=== PATIENT | male | born 1970 | race Caucasian/White ===

== ENCOUNTER 2022-12-20 08:44 | Outpatient (OUT) | payer OTHER, SELFPAY ==
[2022-12-20 09:31] LABS: Basophils Absolute Auto 0.1 10^3/uL (0.0-0.1); Eosinophils Absolute Auto 0.1 10^3/uL (0.0-0.7); Eosinophils Percent Auto 1.3 % (0.9-7.0); Hematocrit 44.7 % (42.0-54.0); Hemoglobin 15.7 g/dL (14.0-18.0); Immature Granulocytes Abs Auto 0.02 10^3/uL (0.00-0.03); Immature Granulocytes Pct Auto 0.3 % (0.0-0.5); Lymphocytes Absolute Auto 1.8 10^3/uL (1.2-3.8); Lymphocytes Percent Auto 28.8 % (20.5-60.0); Mean Corpuscular HGB Conc 35.1 g/dL (29.9-35.2); Mean Corpuscular Hemoglobin 31.7 pg (25.9-34.0); Mean Corpuscular Volume 90.1 fL (80.0-94.0); Monocytes Absolute Auto 0.6 10^3/uL (0.3-0.8); Monocytes Percent Auto 9.9 % (1.7-12.0); Neutrophils Absolute Auto 3.7 10^3/uL (1.4-6.5); Neutrophils Percent Auto 58.7 % (43.0-75.0); Platelet Count 278 10^3/uL (150-450); Red Blood Count 4.96 10^6/uL (4.70-6.10); Red Cell Distribution Width 11.9 % (11.0-15.0); White Blood Count 6.3 10^3/uL (4.0-11.0)
[2022-12-20 10:13] LABS: Alanine Aminotransferase 78 U/L (16-63); Albumin Globulin Ratio 1.2; Alkaline Phosphatase 92 U/L (46-116); Anion Gap 11.6; Aspartate Amino Transferase 34 U/L (15-37); BUN Creatinine Ratio 18.2; Bilirubin Total 0.9 mg/dL (0.2-1.0); Calcium 8.8 mg/dL (8.5-10.1); Carbon Dioxide 27.8 mmol/L (21.0-32.0); Chloride 103 mmol/L (98-107); Chol HDL Ratio 5.6; Cholesterol 206 mg/dL (<=200); Estimated GFR (African America >60 (>=60); Estimated GFR (Non-African Ame >60 (>=60); Globulin 3.4 g/dL; Glucose 109 mg/dL (74-106); HDL Cholesterol 37 mg/dL (40-60); Potassium 4.4 mmol/L (3.5-5.1); Sodium 138 mmol/L (136-145); Total Protein 7.4 g/dL (6.4-8.2); Triglycerides 129 mg/dL (<=150); VLDL CHOLESTEROL 25.8 mg/dL
[2022-12-20 10:26] LABS: Prostate Specific Antigen Scrn 1.01 ng/mL (<=4.00)
== END 2022-12-20 08:45 | disposition home or self-care (01) ==
LOC: LAB 08:50
PROVIDERS: PCP Internal Medicine; Visit Provider Internal Medicine
DX: Z00.00 Encounter for general adult medical examination without abnormal findings (principal); Z12.5 Encounter for screening for malignant neoplasm of prostate
CPT/HCPCS: 36415; 80053; 80061; 85025; G0103

== ENCOUNTER 2024-01-29 07:45 | Outpatient (OUT) | payer OTHER, SELFPAY ==
[2024-01-29 07:59] LABS: Basophils Absolute Auto 0.1 10^3/uL (0.0-0.1); Basophils Percent Auto 0.9 % (0.2-2.0); Eosinophils Absolute Auto 0.1 10^3/uL (0.0-0.7); Eosinophils Percent Auto 1.3 % (0.9-7.0); Hemoglobin 16.2 g/dL (14.0-18.0); Immature Granulocytes Abs Auto 0.02 10^3/uL (0.00-0.03); Immature Granulocytes Pct Auto 0.3 % (0.0-0.5); Lymphocytes Absolute Auto 1.8 10^3/uL (1.2-3.8); Lymphocytes Percent Auto 26.1 % (20.5-60.0); Mean Corpuscular Hemoglobin 32.7 pg (25.9-34.0); Mean Corpuscular Volume 90.7 fL (80.0-94.0); Monocytes Absolute Auto 0.7 10^3/uL (0.3-0.8); Monocytes Percent Auto 9.9 % (1.7-12.0); Neutrophils Absolute Auto 4.2 10^3/uL (1.4-6.5); Neutrophils Percent Auto 61.5 % (43.0-75.0); Platelet Count 282 10^3/uL (150-450); Red Blood Count 4.96 10^6/uL (4.70-6.10); Red Cell Distribution Width 11.6 % (11.0-15.0); White Blood Count 6.9 10^3/uL (4.0-11.0)
[2024-01-29 08:57] LABS: Alanine Aminotransferase 71 U/L (16-63); Albumin Globulin Ratio 1.3; Alkaline Phosphatase 94 U/L (46-116); Anion Gap 14.1; Aspartate Amino Transferase 31 U/L (15-37); Bilirubin Total 1.4 mg/dL (0.2-1.0); Calcium 8.9 mg/dL (8.5-10.1); Carbon Dioxide 25.1 mmol/L (21.0-32.0); Chloride 103 mmol/L (98-107); Chol HDL Ratio 5.6; Cholesterol 207 mg/dL (<=200); Estimated GFR (African America >60 (>=60); Estimated GFR (Non-African Ame >60 (>=60); Globulin 3.2 g/dL; Glucose 108 mg/dL (74-106); HDL Cholesterol 37 mg/dL (40-60); Potassium 4.2 mmol/L (3.5-5.1); Sodium 138 mmol/L (136-145); Total Protein 7.2 g/dL (6.4-8.2); Triglycerides 123 mg/dL (<=150); VLDL CHOLESTEROL 24.6 mg/dL
[2024-01-29 09:15] LABS: Prostate Specific Antigen Scrn 1.54 ng/mL (<=4.00)
== END 2024-01-29 07:46 | disposition home or self-care (01) ==
LOC: LAB 07:45
PROVIDERS: PCP Internal Medicine; Visit Provider Internal Medicine
DX: Z00.00 Encounter for general adult medical examination without abnormal findings (principal)
CPT/HCPCS: 36415; 80053; 80061; 85025; G0103

== ENCOUNTER 2025-01-27 08:31 | Outpatient (OUT) | payer BC, SELFPAY ==
--- OUTSIDE RECORDS SUMMARY | 2025-01-27 08:34 | XMS_ITS | Clinical Summary ---
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 Primary Care Provider Unavailabl e Allergies No known active allergies Medications moexipril hcl(UNIVASC 15 MG TAB) 0 01/14/2008 Active esomeprazole mag trihydrate(NEXI UM 40 MG CAP) 0 01/14/2008 Activ e methylprednisol one(MEDROL (NICHOLAS) 4 MG TABS IN A DOSE PACK)Indication s:Other wrist sprain and strain As directed on package insert one 0 03/14/2008 Active Social History Tobacco Use Types Packs/Day Years Used Date Smoking Tobacco: Never Alcohol Use Standard Drinks/Week Comments No 0 (1 standard drink = 0.6 oz pur e alcohol) Sex and Gender Information Value Date Recorded Sex Assigned at Not on file Legal Sex Male 9:31 AM EST Gender Identity Not on file Sexual Orientation Not on file Last Filed Vital Signs Vital Sign Reading Time Taken Comments Blood Pressure 127/84 01/14/2008 4:41 PM EDT Pulse 81 01/14/2008 4:41 PM EDT Temperature - - Respiratory Rate - - Oxygen Saturation 100% 01/14/2008 4:41 PM EDT Inhaled Oxygen Concentration - - Weight 90.7 kg (200 lb) 01/14/2008 4:41 PM EDT Height 177.8 cm (5' 10 ) 01/14/2008 4:41 PM EDT Body Mass Index 28.7 01/14/2008 4:41 PM EDT Plan of Treatment Health Maintenance Due Date Last Done Comments Anxiety Screening 1988 Depression Screening 1988 HIV Screening 1988 Hepatitis C Screening 1988 DTaP,Tdap,Td Vaccine (1 - Tdap) 1989 Hepatitis B Vaccine (1 of 3 - 19+ 3-dose series) 07/[address] Colonography 2015 Cologuard (FIT-DNA) 2015 Colonoscopy 2015 Colorectal Cancer Screening 2015 Diabetes Screening 2015 01/18/2008 Fecal Occult Blood 2015 Sigmoidoscopy 2015 Pneumococcal Vaccine: 50+ (1 of 1 - PCV) 2020 Shingrix Vaccine (1 of 2) 2020 Influenza Vaccine (#1) 2025 Procedures Procedure Name Priority Date/Time Associated Diagnosis Comments BASIC METABOLIC PANEL Routine 01/18/2008 9:36 AM EDT Sprain Of Wrist Nec from Last 3 Months or Most Recently Relevant to Health Maintenance Results * BASIC METABOLIC PNL (01/18/2008 9:36 AM EDT) Glucose 94 65 - 100 mg/dL [facility] BUN 20 10 - 25 mg/dL [facility] Creatinine 1.21 0.70 - 1.40 mg/dL [facility] Sodium 138 135 - 146 mmol/L [facility] Potassium 4.8 3.5 - 5.0 mmol/L [facility] Chloride 102 98 - 110 mmol/L [facility] CO2 24 23 - 32 mmol/L [facility] Anion Gap 12 0 - 15 mmol/L [facility] Calcium 9.1 8.5 - 10.5 mg/dL [facility] eGFR- >60 [facility] eGFR-All Other Races >60 [facility] Comment: eGFR (Estimated GFR) Units of measure: mL/min/1.73 meters squared eGFR is derived from the reexpressed MDRD Study equation using the following parameters: serum creatinine, age, gender and race. The creatinine assay has been calibrated to be traceable to IDMS. An eGFR <60 mL/min/1.73m2 for >3 months is consistent with chronic kidney disease. Refer to KDOQI guidelines for clinical interpretation. Blood specimen (specimen) BLOOD SPECIMEN / Unknown 01/18/2008 9:36 AM EDT us Alissa Beury PA-C LABORATORY Final Result [facility] [id number] [place] [address] from Last 3 Months or Most Recently Relevant to Health Maintenance Insurance [facility] Advance Directives Documents on File Type Date Recorded Patient [employer] Expl anation Advance Directive(s) 02/04/2008
--- OUTSIDE RECORDS SUMMARY | 2025-01-27 08:34 | XMS_ITS | Clinical Summary ---
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 Phone Unavailable Primary Care Provider Unavailabl e Allergies No known active allergies Medications omeprazole (PriLOSEC) [address] capsule TAKE 1 CAPSULE DAILY ON EMPTY STOMACH FOLLOWED IN 30 MINUTES BY BREAKFAST 5 Active benazepril (Lotensin) 40 MG tablet Take 40 mg by mouth Daily 5 Active Active Problems No known active problems Social History Tobacco Use Types Packs/Day Years Used Date Smoking Tobacco: Never Smokeless Tobacco: Never Tobacco Cessation:Counseling Given: Not Answered Sex and Gender Information Value Date Recorded Sex Assigned at Not on file Legal Sex Male 6:42 PM EDT Gender Identity Not on file Sexual Orientation Not on file Plan of Treatment Upcoming Encounters Date Type Department Care Team (Late st Contact Info) Description 09/08/2025 3:35 PM EDT [facility] [address] [facility] [address] [place] [id number] Isabel Parker MD [address] [facility] [address] [place], [place] [id number] Insurance [facility]
--- OUTSIDE RECORDS SUMMARY | 2025-01-27 08:38 | XMS_ITS | CCD ---
Author Organization [facility] Care Team Providers Care Nurseryperson Name Role Phone Demetria Nur Unavailable LUÍS, DR BURGOS Admitting Unavailable BALL, DR BURGOS Attending Unavailable BALL, DR BURGOS Primary Care Unavailable BALL, DR BURGOS Consulting Unavailable WEST, DR FLAVIO Klein Consulting Unavailable LUÍS, DR BURGOS Admitting Unavailable BALL, DR BURGOS Attending Unavailable BALL, DR BURGOS Primary Care Unavailable BALL, DR BURGOS Consulting Unavailable BALL, DR BURGOS Admitting Unavailable BALL, DR BURGOS Attending Unavailable BALL, DR BURGOS Referring Unavailable BALL, DR BURGOS Primary Care Unavailable BALL, DR BURGOS Consulting Unavailable CORNELIUS, DR FLAVIO Klein Consulting Unavailable Yaya Staley Unavailable YAYA STALEY Primary Care Physician Unavailable Primary Care Provider UnavailISABEL Farrar Attending Unavailable SHOOK, Eren Chin Attending Unavailable SHOOK, Eren Chin Attending Unavailable SHOOK, Eren Chin Attending Unavailable SHOOK, Eren Chin Admitting Unavailable GEN, Eren Chin Attending Unavailable Yaya Staley DO Primary Care Provider [phone] Yaya Staley DO Attending Provider [phone] Allergies Allergy Classification Reported Allergen(s) Allergy Type Date of Onset Reaction(s) Facility (1 source) patient allergy list reviewed by nurse or physicia Propensity to adverse reactions 4 Comment:Done [employer] Other Medications Current Medications Medication Drug Class(es) Dates Sig (Normalized) Sig (Original) 24 hr alfuzosin hydrochloride 10 mg extended release oral tablet (4 sources) alpha-Adrenergic Hitesh Start: 01-26-2025 take 1 tablet by mouth once daily at mealtime Alfuzosin 10 mg tablet extended release 24 hr Active 10 MG PO Daily January 26, 2025 12:00am administer after the same meal each day Complies with drug therapy Start: 11-05-20[address] once daily alfuzosin 10 mg ER Tab 10 mg = 1 tab(s), Oral, Daily, # 90 tab(s), Refills(s) 3, [id number], cm, 11/05/24 10:11:00 EDT, Height/Length Dosing, 101.7, kg, 11/05/24 10:11:00 EDT, Weight Dosing Start Date: 11/05/24 Status: Ordered Quantity: 90.0 Unit: tab(s) Repeat number: 4 Indications: Benign prostatic hyperplasia with lower urinary tract symptoms; Start: 08-02-2024 take [address] once daily alfuzosin 10 mg ER Tab 10 mg = 1 tab(s), Oral, Daily, # 30 tab(s), Refills(s) 11, [id number] 180, cm, 08/02/24 10:11:00 EST, Height/Length Dosing, 106, kg, 08/02/24 10:11:00 EST, Weight Dosing Start Date: 08/02/24 Status: Ordered Quantity: 30.0 Unit: tab(s) Repeat number: 12 Indication: Benign prostatic hyperplasia with lower urinary tract symptoms benazepril hydrochloride 40 mg oral tablet (15 sources) Angiotensin Converting Enzyme Inhibitor Start: 06-28-2024 End: 12-28-2024 take 1 tablet by mouth once daily Benazepril 40 mg tablet Active 0 .ROUTE .COMPLEX 90 December 28, 2024 7:41am TAKE 1 TABLET BY MOUTH EVERY DAY Complies with drug therapy Start: 03-31-2019 End: 06-28-2024 take 1 tablet by mouth once daily benazepril (Lotensin) 40 MG tablet Take 40 mg by mouth Daily 06/28/2024 Active Start: 04-01-[address] once daily benazepril 20 mg Tab 20 mg = 1 tab(s), Oral, Daily, Refills(s) 0, High blood pressure Start Date: 04/01/14 Status: Ordered Repeat number: 1 doxycycline hyclate 100 mg oral capsule (1 source) Tetracycline-class Drug Start: 08-02-2024 End: 08-30-2024 take 1 capsule by mouth twice daily doxycycline hyclate 100 mg Cap 100 mg = 1 cap(s), Oral, BID, X 4 week(s), # 56 cap(s), Refills(s) 0, Pharmacy: [facility]/pharmacy #[id number], 180, cm, 08/02/24 10:11:00 EST, Height/Length Dosing, 106, kg, 08/02/24 10:11:00 EST, Weight Dosing Start Date: 08/02/24 Stop Date: 08/30/24 Status: Ordered omeprazole 20 mg delayed release oral capsule (16 sources) Proton Pump Inhibitor Start: 06-13-2024 omeprazole (PriLOSEC) [address] capsule TAKE 1 CAPSULE DAILY ON EMPTY STOMACH FOLLOWED IN 30 MINUTES BY BREAKFAST 06/13/2024 Active Start: 04-12-2024 End: 12-10-2024 Omeprazole 20 mg capsule,del ayed release(DR/EC) Active 0 .ROUTE .COMPLEX December 10, 2024 8:24am TAKE 1 CAPSULE DAILY ON EMPTY STOMACH FOLLOWED IN 30 MINUTES BY BREAKFAST Complies with drug therapy Start: 01-19-2024 End: 04-12-2024 take 1 capsule by mouth once daily at breakfast Omeprazole 20 mg capsule,delayed release(DR/EC) Discontinued 20 MG PO Daily January 19, 2024 12:00am April 12, 2024 1:59pm DAILY ON EMPTY STOMACH FOLLOWED IN 30 MINUTES BY BREAKFAST Start: 04-01-2014 take 1 capsule by [facility] once daily Omeprazole 20 mg Cap - DR 20 mg, Oral, Daily, Refills(s) 0, Control of stomach acid Start Date: 04/01/14 Status: Ordered Repeat number: 1 Omeprazole 20 MG TAKE 1 CAPSULE BY MOUTH DAILY ON EMPTY STOMACH FOLLOWED IN 30 MINUTES BY BREAKFAST Orally Once a day for 90 days Active Omeprazole Not-T aking/PRN Omeprazole Not-T aking Omeprazole Activ e selenium sulfide 25 mg/ml medicated shampoo (2 sources) Start: 12-16-2022 Selenium Sulfi de 2.5 % 1 application Externally daily x 1 week for 7 days Nov, Active Start: 12-16-2022 Selenium Sulfi de 2.5 % 1 application Externally daily x 1 week for 7 days Nov, Active sulfamethoxazole 400 mg / trimethoprim 80 mg oral tablet (2 sources) Dihydrofolate Reductase Inhibitor Antibacterial, Sulfonamide Antimicrobial Start: 01-26-2025 take 1 tablet by mouth once daily Sulfamethoxazole-Trimethoprim 400-80 mg tablet Active 1 TAB PO Daily January 26, 2025 12:00am Complies with drug therapy Start: 11-05-2024 End: 01-04-2025 Bactrim D.S. 800 mg-160 mg T ab 1 tab(s), Oral, q12hr for 30 day(s), 60 tab(s), Refill(s) 1, Take with food, [facility]/pharmacy #[id number], 180, cm, 11/05/24 10:11:00 EDT, Height/Length Dosing, 101.7, kg, 11/05/24 10:11:00 EDT, Weight Dosing Start Date: 11/05/24 Stop Date: 01/04/25 Status: Ordered Quantity: 60.0 Unit: tab(s) Repeat number: 2 Completed/Discontinued Medications Medication Drug Class(es) Dates Sig (Normalized) Sig (Original) acetaminophen 325 mg / oxyCODONE hydrochloride 5 mg oral tablet (2 sources) Opioid Agonist Start: 03-31-2019 End: 01-19-2024 take 1 tablet by mouth every six hours as needed for pain Oxycodone-Acetamin ophen 5-325 mg tablet Discontinued 1 TAB PO Q6H as needed for pain 19 10March 31, 2019 January 19, 2024 2:01pm cefTRIAXone (3 sources) Cephalosporin Antibacterial Start: 11-11-2016 Rocephin 500 mg Oct, 250 mg cephalexin 500 mg oral tablet (6 sources) Cephalosporin Antibacterial Start: 06-25-2021 take 1 tablet by mouth every twelve hours Cephalexin 500 MG 1 tablet Orally every 12 hrs for 10 day(s) Jun, Not-Taking/PRN Start: 03-31-2019 End: 01-19-2024 take 1 capsule by mouth every twelve hours Cephalexin 500 mg capsule Discontinued 500 MG PO Q12H March 31, 2019 12:00am January 19, 2024 2:00pm fluconazole 150 mg oral tablet (4 sources) Azole Antifungal Start: 01-19-2024 End: 01-19-2024 take 2 tablets by mouth every week Fluconazole 150 mg tablet Discontinued 300 MG PO every week January 19, 2024 12:00am January 19, 2024 2:11pm Start: 01-19-2024 End: 01-19-2024 take 300 mg by mouth every week Fluconazole Discontinu ed 300 MG PO every week January 19, 2024 12:00am January 19, 2024 2:11pm Start: 12-16-2022 take 2 tablets by mo [facility] every week Fluconazole 150 MG 2 tablets Orally weekly for 14 days Nov, Active tadalafil 20 mg oral tablet (4 sources) Phosphodiesterase 5 Inhibitor Start: 01-19-2024 End: 01-19-2024 take 1 tablet by mouth once daily as needed Tadalafil (Pulm. Hypertension) 20 mg tablet Discontinued 20 MG PO Daily as needed January 19, 2024 12:00am January 19, 2024 2:11pm Start: 12-16-[address] every twenty-four hours Tadalafil 20 MG 1 tablet as needed Orally Once a day for 30 days Nov, Active Problems Active Problems Problem Classification Problem Date Documented Date Episodic/Chronic Abdominal pain (13 sources) Right lower quadrant pain; Translations: [Right upper quadrant pain] Onset: 05-11-2018 Episodic Acute bronchitis (1 source) Acute bronchitis due to other specified organisms; Translations: [Acute bronchitis due to other specified organisms] Episodic Conditions associated with dizziness or vertigo (3 sources) Dizziness and giddiness; Translations: [Benign paroxysmal positional vertigo] Onset: 04-18-2017 01-26-2025 Episodic Disorders of lipid metabolism (13 sources) Hypercholesterolemia; Translations: [Pure hypercholesterolemia, unspecified] Onset: 08-17-2013 Chronic Esophageal disorders (10 sources) Gastro-esophageal reflux disease with esophagitis; Translations: [Gastroesophageal reflux disease with esophagitis without hemorrhage] Onset: 08-17-2013 01-17-2024 Chronic Esophageal disorders (3 sources) Esophageal disorders; Translations: [Gastro-esophageal reflux disease with esophagitis, without bleeding] Essential hypertension (11 sources) Essential hypertension; Translations: [Essential (primary) hypertension] Chronic Essential hypertension (1 source) Essential hypertension; Translations: [Essential hypertension, benign] Onset: 08-17-2013 Hemorrhoids (3 sources) Prolapsed hemorrhoids 07-16-2019 Episodic Hyperplasia of prostate (5 sources) Benign prostatic hypertrophy with outflow obstruction; Translations: [Benign prostatic hyperplasia with lower urinary tract symptoms] Onset: 08-02-2024 Chronic Inflammatory conditions of male genital organs (5 sources) Chronic prostatitis; Translations: [Chronic prostatitis] Onset: 08-02-2024 Chronic Inflammatory conditions of male genital organs (2 sources) Epididymitis; Translations: [Epididymo-orchitis] Onset: 08-27-2018 Episodic Mycoses (1 source) Pityriasis versicolor Episodic Other and unspecified benign neoplasm (1 source) Benign lipomatous neoplasm of skin and subcutaneous tissue of trunk; Translations: [Benign lipomatous neoplasm of skin and subcutaneous tissue of trunk] Episodic Other and unspecified benign neoplasm (3 sources) Lipoma of skin and subcutaneous tissue (excluding face) 07-16-2019 Episodic Other and unspecified benign neoplasm (3 sources) Lipoma of trunk 06-21-2019 Episodic Other diseases of kidney and ureters (3 sources) Hydronephrosis 01-19-2019 Episodic Other diseases of veins and lymphatics (1 source) Scrotal varices; Translations: [Scrotal varices] Episodic Other diseases of veins and lymphatics (3 sources) Varicocele 10-19-2019 Episodic Other inflammatory condition of skin (2 sources) Seborrheic dermatitis; Translations: [Other seborrheic dermatitis] 09-07-2024 Episodic Other lower respiratory disease (4 sources) Cough; Translations: [Cough] Episodic Other male genital disorders (2 sources) Erectile dysfunction co-occurrent and due to arterial insufficiency; Translations: [Erectile dysfunction due to arterial insufficiency] Chronic Other male genital disorders (1 source) Erectile dysfunction due to arterial insufficiency Chronic Other male genital disorders (3 sources) Cyst of epididymis 01-19-2019 Episodic Other male genital disorders (1 source) Disorder of male genital organ; Translations: [Other specified disorders of the male genital organs] Onset: 11-05-2024 Episodic Other male genital disorders (1 source) Disorder of spermatic cord 11-05-2024 Episodic Other male genital disorders (1 source) Pain in testicle 11-05-2024 Episodic Other non-traumatic joint disorders (5 sources) Pain in right hip; Translations: [Pain in joint, pelvic region and thigh] Onset: 01-10-2022 Episodic Other non-traumatic joint disorders (1 source) Pain in left hip; Translations: [PAIN IN LEFT HIP] Onset: 01-11-2022 Episodic Other non-traumatic joint disorders (3 sources) Hip pain; Translations: [Pain in right hip] 01-19-2024 Episodic Other nutritional; endocrine; and metabolic disorders (5 sources) Body mass index 30+ - obesity; Translations: [Body mass index (BMI) 34.0-34.9, adult] 06-22-2019 Chronic Other nutritional; endocrine; and metabolic disorders (2 sources) Obesity caused by energy imbalance; Translations: [Other obesity due to excess calories] Chronic Other nutritional; endocrine; and metabolic disorders (2 sources) Other obesity due to excess calories; Translations: [Other obesity due to excess calories] Onset: 08-17-2013 Chronic Other nutritional; endocrine; and metabolic disorders (1 source) Body mass index (BMI) 34.0-34.9, adult Chronic Other nutritional; endocrine; and metabolic disorders (1 source) Other disorders of bilirubin metabolism; Translations: [Other disorders of bilirubin metabolism] Onset: 05-16-2018 Chronic Other nutritional; endocrine; and metabolic disorders (2 sources) Obesity, unspecified; Translations: [Obesity, unspecified] 01-19-2024 Chronic Other nutritional; endocrine; and metabolic disorders (6 sources) Obesity; Translations: [Obesity, unspecified] 01-19-2024 Chronic Other screening for suspected conditions (not mental disorders or infectious disease) (6 sources) Encounter for screening for malignant neoplasm of prostate; Translations: [Screening for malignant neoplasm done] Onset: 08-09-2021 Episodic Other skin disorders (3 sources) Nodule of subcutaneous tissue of abdominal wall 06-24-2019 Episodic Other skin disorders (2 sources) Lentiginosis; Translations: [Other melanin hyperpigmentation] 09-07-2024 Episodic Other skin disorders (2 sources) Seborrheic keratosis; Translations: [Other seborrheic keratosis] 09-07-2024 Episodic Screening and history of mental health and substance abuse codes (1 source) Encounter for screening for depression; Translations: [Encounter for screening for depression] Episodic Spondylosis; intervertebral disc disorders; other back problems (9 sources) Spondylosis without myelopathy or radiculopathy, lumbar region; Translations: [Lumbar spondylosis] Onset: 07-28-2017 Chronic Spondylosis; intervertebral disc disorders; other back problems (2 sources) Sacrococcygeal disorders, not elsewhere classified; Translations: [SACROCOCCYGEAL DISORDERS NEC] Onset: 08-12-2022 Episodic Sprains and strains (4 sources) Strain of muscle(s) and tendon(s) of the rotator cuff of right shoulder, initial encounter; Translations: [Rupture of anterior cruciate ligament] Onset: 04-18-2017 04-01-2014 Episodic Comment on above: RIGHT Unclassified (1 source) Low back pain, unspecified; Translations: [Low back pain, unspecified] Unclassified (1 source) Unspecified viral infection, in conditions classified elsewhere and of unspecified site; Translations: [Unspecified viral infection, in conditions classified elsewhere and of unspecified site] Onset: 08-29-2015 Unclassified (1 source) Chest pain, Other; Translations: [Chest pain, Other] Onset: 06-11-2017 Unclassified (1 source) Routine general medical examination at health care facility; Translations: [Routine general medical examination at health care facility] Onset: 11-27-2015 Unclassified (1 source) Body mass index 31.0-31.9, adult; Translations: [Body mass index 31.0-31.9, adult] Onset: 08-17-2013 Unclassified (1 source) Body mass index 30.0-30.9, adult; Translations: [Body mass index 30.0-30.9, adult] Onset: 08-17-2013 Unclassified (1 source) Body mass index 32.0-32.9, adult; Translations: [Body mass index 32.0-32.9, adult] Onset: 08-17-2013 Unclassified (1 source) Bacterial infection, unspecified, in conditions classified elsewhere and of unspecified site; Translations: [Bacterial infection, unspecified, in conditions classified elsewhere and of unspecified site] Onset: 08-27-2018 Unclassified (1 source) Abdominal pain, other specified site; Translations: [Abdominal pain, other specified site] Onset: 05-11-2018 Unclassified (6 sources) Patient encounter status 07-16-2019 Past or Other Problems Problem Classification Problem Date Documented Da te Episodic/Chronic Nonspecific chest pain (1 source) Other chest pain; Translations: [Other chest pain] Onset: 08-08-2017 Episodic Other diseases of veins and lymphatics (1 source) Scrotal varices; Translations: [Scrotal varices] Onset: 09-08-2018 Episodic Other gastrointestinal disorders (1 source) Other specified symptoms and signs involving the digestive system and abdomen; Translations: [Oth symptoms and signs involving the dgstv sys and abdomen] Resolved: 03-06-2020 Episodic Other liver diseases (1 source) Fatty (change of) liver, not elsewhere classified; Translations: [Fatty (change of) liver, not elsewhere classified] Resolved: 03-06-2020 Chronic Other male genital disorders (1 source) Left testicular pain; Translations: [Left testicular pain] Onset: 09-08-2018 Episodic Skin and subcutaneous tissue infections (1 source) Cellulitis of left finger Onset: 06-25-2021 Resolved: 06-25-2021 Episodic Results Test Name Value Interpretation Reference Range Facility Ambulatory Visit Summaryon 0 11-05-2024 Ambulatory Visit Summary Ambulatory Visit Summary COLEMAN STEELE IV :1970 Visit Date:11/05/2024 Ambulatory Visit Instructions Your Diagnosis BPH with urinary obstruction Groin pain Chronic prostatitis Spermatic cord pain Your Care Team Attending Physician - GEN ADAM, Eren Chin Primary Care Physician - YAYA STALEY DO This Is Your Medications List alfuzosin (alfuzosin 10 mg ER Tab) sulfamethoxazole-trimethoprim (Bactrim D.S. 800 mg-160 mg Tab) Contact prescribing physician if questions or concerns benazepril (benazepril 20 mg Tab) omeprazole (Omeprazole 20 mg Cap - DR) Procedures Performed Scrotal varicocelectomy (03/31/2019), right knee arthroscopy with chondroplasty, medial and lateral femoral condyle, anterior horn partial lateral meniscectomy, allograft anterior cruciate ligament reconstruction (04/12/2014), Esophagogastroduodenoscopy (03/02/2010), Arthroscopy of knee, Elbow fracture - closed, History of knee surgery, Tonsillectomy, WRIST EXPLORATION. Discharge Vitals Temperature (Oral) 36.5 ???C Heart Rate (Peripheral) 84 Respiratory Rate 16 Blood Pressure 150/100 Height 180 cm Height 71 in Weight 101.7 kg Weight 224.21 lb BMI 31.39 What to do next You Need to Schedule the Following Appointments Follow Up with GEN ADAM, Eren Chin, ALYSHA When: Where: [address] [place] [address]- Medications What How Much When Why Instructions New sulfamethoxazole-trimethoprim (Bactrim D.S. 800 mg-160 mg Tab) 1 Tablets By Mouth Every 12 hours Duration: 30 Days Refills: 1 Take with food Pickup at [facility]/pharmacy #[id number] Unchanged alfuzosin (alfuzosin 10 mg ER Tab) 1 Tablets By Mouth Every day BPH with urinary obstruction Pickup at [facility]/pharmacy #[id number] Unchanged benazepril (benazepril 20 mg Tab) 1 Tablets By Mouth Every day Contact prescribing physician if questions or concerns Unchanged omeprazole (Omeprazole 20 mg Cap - DR) 20 Milligram By Mouth Every day Contact prescribing physician if questions or concerns [id number] [address], [place] [phone] Allergies No Known Allergies Problems Ongoing - Any problem that you are currently receiving treatment for. Acid reflux Anterior cruciate ligament tear BMI 30.0-30.9,adult BPH with urinary obstruction Chronic prostatitis Cutaneous angiolipoma Elevated cholesterol Epididymal cyst Groin pain Hemorrhoid prolapse HTN - Hypertension Hydronephrosis Left varicocele Lipoma of torso Obesity 02-DEC-2013 12:37:00<$> Screening for malignant neoplasm of colon Screening PSA (prostate specific antigen) Spermatic cord pain Subcutaneous nodule of abdominal wall Testicular pain Patient Survey You may receive a survey via text or e-mail asking about your office visit. Please share your experience with us by completing your survey. We appreciate your feedback and thank you for choosing us for your care. Education Materials Prostatitis Prostatitis is swelling or inflammation of the prostate gland, also called the prostate. This gland is about 1.5 inches wide and 1 inch high, and it is involved in making semen. The prostate is located below a man's bladder, in front of the rectum. There are four types of prostatitis: ??? Chronic prostatitis (CP), also called chronic pelvic pain syndrome (CPPS). This is the most common type of prostatitis. It is associated with increased muscle tone in the area between the hip bones (pelvic area), around the prostate. This type is also known as a pelvic floor disorder. ??? Chronic bacterial prostatitis. This type usually results from an acute bacterial infection in the prostate gland that keeps coming back or has not been treated properly. The symptoms are less severe than those caused by acute bacterial prostatitis, which lasts a shorter time. ??? Asymptomatic inflammatory prostatitis. This type does not have symptoms and does not need treatment. This is diagnosed when tests are done for other disorders of the urinary tract or reproductive tract. ??? Acute bacterial prostatitis. This type starts quickly and results from an acute bacterial infection in the prostate gland. It is usually associated with a bladder infection, high fever, and chills. This is the least common type of prostatitis. What are the causes? Bacterial prostatitis is caused by an infection from bacteria. Chronic nonbacterial prostatitis may be caused by: ??? Factors related to the nervous system. This system includes thebrain, spinal cord, and nerves. ??? An autoimmune response. This happens when the body's disease-fighting system attacks healthy tissue in the body by mistake. ??? Psychological factors. These have to do with how the mind works. The causes of the other types of prostatitis are usually not known. What are the signs or symptoms? Symptoms of this condition depend on the type o (more content not included)... Normal [facility] Ambulatory Visit Summary Ambulatory Visit Summary COLEMAN STEELE IV :1970 Visit Date:11/05/2024 Ambulatory Visit Instructions Your Diagnosis BPH with urinary obstruction Groin pain Chronic prostatitis Spermatic cord pain Your Care Team Attending Physician - EGN ADAM, Eren Chin Primary Care Physician - YAYA STALEY DO This Is Your Medications List alfuzosin (alfuzosin 10 mg ER Tab) sulfamethoxazole-trimethoprim (Bactrim D.S. 800 mg-160 mg Tab) Contact prescribing physician if questions or concerns benazepril (benazepril 20 mg Tab) omeprazole (Omeprazole 20 mg Cap - DR) Procedures Performed Scrotal varicocelectomy (03/31/2019), right knee arthroscopy with chondroplasty, medial and lateral femoral condyle, anterior horn partial lateral meniscectomy, allograft anterior cruciate ligament reconstruction (04/12/2014), Esophagogastroduodenoscopy (03/02/2010), Arthroscopy of knee, Elbow fracture - closed, History of knee surgery, Tonsillectomy, WRIST EXPLORATION. Discharge Vitals Temperature (Oral) 36.5 ???C Heart Rate (Peripheral) 84 Respiratory Rate 16 Blood Pressure 150/100 Height 180 cm Height 71 in Weight 101.7 kg Weight 224.21 lb BMI 31.39 What to do next You Need to Schedule the Following Appointments Follow Up with GEN ADAM, ALYSHA Vazquez When: Where: [address] [place] [address]- Medications What How Much When Why Instructions New sulfamethoxazole-trimethoprim (Bactrim D.S. 800 mg-160 mg Tab) 1 Tablets By Mouth Every 12 hours Duration: 30 Days Refills: 1 Take with food Pickup at [facility]/pharmacy #[id number] Unchanged alfuzosin (alfuzosin 10 mg ER Tab) 1 Tablets By Mouth Every day BPH with urinary obstruction Pickup at [facility]/pharmacy #[id number] Unchanged benazepril (benazepril 20 mg Tab) 1 Tablets By Mouth Every day Contact prescribing physician if questions or concerns Unchanged omeprazole (Omeprazole 20 mg Cap - DR) 20 Milligram By Mouth Every day Contact prescribing physician if questions or concerns [id number] [address], [place] [phone] Allergies No Known Allergies Problems Ongoing - Any problem that you are currently receiving treatment for. Acid reflux Anterior cruciate ligament tear BMI 30.0-30.9,adult BPH with urinary obstruction Chronic prostatitis Cutaneous angiolipoma Elevated cholesterol Epididymal cyst Groin pain Hemorrhoid prolapse HTN - Hypertension Hydronephrosis Left varicocele Lipoma of torso Obesity 02-DEC-2013 12:37:00<$> Screening for malignant neoplasm of colon Screening PSA (prostate specific antigen) Spermatic cord pain Subcutaneous nodule of abdominal wall Testicular pain Patient Survey You may receive a survey via text or e-mail asking about your office visit. Please share your experience with us by completing your survey. We appreciate your feedback and thank you for choosing us for your care. Education Materials Prostatitis Prostatitis is swelling or inflammation of the prostate gland, also called the prostate. This gland is about 1.5 inches wide and 1 inch high, and it is involved in making semen. The prostate is located below a man's bladder, in front of the rectum. There are four types of prostatitis: ??? Chronic prostatitis (CP), also called chronic pelvic pain syndrome (CPPS). This is the most common type of prostatitis. It is associated with increased muscle tone in the area between the hip bones (pelvic area), around the prostate. This type is also known as a pelvic floor disorder. ??? Chronic bacterial prostatitis. This type usually results from an acute bacterial infection in the prostate gland that keeps coming back or has not been treated properly. The symptoms are less severe than those caused by acute bacterial prostatitis, which lasts a shorter time. ??? Asymptomatic inflammatory prostatitis. This type does not have symptoms and does not need treatment. This is diagnosed when tests are done for other disorders of the urinary tract or reproductive tract. ??? Acute bacterial prostatitis. This type starts quickly and results from an acute bacterial infection in the prostate gland. It is usually associated with a bladder infection, high fever, and chills. This is the least common type of prostatitis. What are the causes? Bacterial prostatitis is caused by an infection from bacteria. Chronic nonbacterial prostatitis may be caused by: ??? Factors related to the nervous system. This system includes thebrain, spinal cord, and nerves. ??? An autoimmune response. This happens when the body's disease-fighting system attacks healthy tissue in the body by mistake. ??? Psychological factors. These have to do with how the mind works. The causes of the other types of prostatitis are usually not known. What are the signs or symptoms? Symptoms of this condition depend on the type o (more content not included)... Normal [facility] Urology Office/Clinic Noteon 11-05-2024 Urology Office/Clinic Note Urology Office/Clinic Note Chief Complaint 3 myh w/ KUB HPI Staff 54 yr old male here for 3 mth f/u w/ KUB KUB done 10/14/24 Previous Dx: kidney stone on left side, bilateral groin pain, abdominal pain bilateral upper quadrant, left variocele Last PSA 01/29/24- 1.54 pt denies any urinary issues pt does have some tenderness in prostate, and pain in left testicle and groin pt did not want to fill out the IPSS or JAUN History of Present Illness Tests reviewed: reviewed UA and KUB. I have reviewed the previous health record information and history for this patient from Dr. Shook I have reviewed and verified the staff HPI to be accurate for this encounter. There have been no associated fever, chills, flank pain, or blood in the urine. Denies any urinary infections since last encounter. Review of Systems PHQ Score Initial Depression Screen Score: 0 SCORE ROS - Provider Constitutional: denies weight loss, denies hot flashes. Eyes: denies eye problems. Gastrointestinal: denies nausea, denies vomiting. Cardiovascular: denies chest pain or angina. Integumentary: no dryness Musculoskeletal: denies musculoskeletal symptoms. ENMT: denies otolaryngeal symptoms. Respiratory: no shortness of breath. Heme/Lymph: denies easy bleeding tendency, denies easy bruising tendency. Psychiatric: no confusion, no anxiety. Genitourinary: See HPI. Physical Exam Vitals & Measurements T: 36.5 ???C(Oral) HR: 84(Peripheral) RR: 16 BP: 150/100 HT: 71 in HT: 180 cm WT: 224.21 lb WT: 101.7 kg BMI: 31.39 General Appearance: alert, no distress, well nourished, well developed male. Genitourinary: L spermatic cord tender on exam. no mass. Assessment/Plan Prior DLS pt KUB 10/14/24 [facility] [place] no obvious stones. 1. BPH with urinary obstruction (N40.1: Benign prostatic hyperplasia with lower urinary tract symptoms) PSA 01/29/24 - 1.54 Primary care checks PSA. Pt has wellness exam due next week, PSA will be checked at that time. No known family history of prostate CA. One of his brothers had pancreatic cancer, now . Sister initially diagnosed with throat cancer which developed into metastatic disease. She is now . UA today negative for blood or infection. Prior IPSS 11, did not fill out today. Started Alfuzosin 10mg ER qd at prior OV. Pt states I think I urinate fine . -PSA through primary care will be done next week, pt to call if results are elevated -Cont Alfuzosin, refill sent 2. Groin pain (R10.30: Lower abdominal pain, unspecified) S/p L varicocelectomy 03/31/19 by DLS (due to pain). Has had ongoing sharp pain since procedure. Radiates from lower abdomen to scrotal area. Pain is not always persistent but has aching in groin often. Denies pain/discomfort with urination. No hx of kidney stones. Also reports he has flares after intercourse. Treated with Doxycycline 100mg bid x 1 month at prior OV. Did not notice much of a difference after he completed ATB course. Still c/o prostate tenderness and pain in his left testicle and groin. Ongoing pain following ejaculation. Pt states pain is the same as it was prior to varicocelectomy. -Start Bactrim DS bid x 2 months (#60 with 1 refill) -Limit sun exposure, wear sunblock, start daily probiotic Follow up in 3 mos. 3. Chronic prostatitis (N41.1: Chronic prostatitis) See #2. 4. Spermatic cord pain (N50.89: Other specified disorders of the male genital organs) Rates testicular pain 11/09. Pt states pain is the same as it was prior to varicocelectomy. L spermatic cord tenderness on exam today. Offered to order a scrotal US to make pt more comfortable. He declines. -See #2 and 3 Follow-up With When Contact Information GEN ADAM, Eren Chin, URL [facility] [place] [id number]- Additional Instructions: 3 mos Patient Education Prostatitis I, Tanja Jones, personally scribed for Dr. Shook on 11/05/2024 11:05:31. . Documentation recorded by the scribe, Tanja Jones, accurately reflects the services(s) I performed and decisions made by me. Authenticated by Dr. Shook on 11/05/2024 11:07:49. Problem List/Past Medical History Ongoing Acid reflux Anterior cruciate ligament tear BMI 30.0-30.9,adult BPH with urinary obstruction Chronic prostatitis Cutaneous angiolipoma Elevated cholesterol Epididymal cyst Groin pain Hemorrhoid prolapse HTN - Hypertension Hydronephrosis Left varicocele Lipoma of torso Obesity 02-DEC-2013 12:37:00<$> Screening for malignant neoplasm of colon Screening PSA (prostate specific antigen) Spermatic cord pain Subcutaneous nodule of abdominal wall Testicular pain Historical No qualifying data Procedure/Surgical History Scrotal varicocelectomy (03/31/2019), right knee arthroscopy with chondroplasty, medial and lateral femoral condyle, anterior horn partial lateral meniscectomy, allograft anterior cruciate ligame (more content not included)... Normal [facility] Comment on above: Result Comment: Electronically Signed By : Eren SHOOK MD\.br\Date and Time Signed: 11/05/24 11:07 EDT\.br\Electronically Co-Signed By: Tanja Jones.br\Date and Time Co-Signed: 11/05/24 11:05 EDT XR Abdomen 1 Viewon 10-15-19 XR Abdomen 1 View Exam Date/Time: 10/14/2024 11:12 EDT Reason for Exam: R10.30 Report IMPRESSION: NO URINARY TRACT CALCULI IDENTIFIED BY RADIOGRAPHY. EXAMINATION: XR Abdomen 1 View HISTORY: Left groin pain TECHNIQUE: Frontal view of the abdomen and pelvis COMPARISON: None available FINDINGS: No calcifications identified over the bilateral renal shadows or expected course of the ureters. Nonobstructive bowel gas pattern. No evidence of free air. No acute osseous abnormality. Ordering Provider: Eren SHOOK FINAL REPORT Dictated: 10/14/2024 1:28 pm Edinson Alfonso DO Signed (Electronic Signature): 10/14/2024 1:28 pm Signed by: Edinson Alfonso DO Transcribed by: THERESA Technologist: KELLIE oKenig [facility] Urology Office/Clinic Noteon 08-02-2024 Urology Office/Clinic Note Urology Office/Clinic Note Chief Complaint New patient lower abdominal pain HPI Staff 54yr old male pt here to re-establish care for abdominal pain x 1 year. Last seen in 2019. Had CT done at that time on 10/2019 for similar complaints. Result negative. S/p left varicocelectomy 03/31/19. Previous Dx: kidney stone on left side, bilateral groin pain, abdominal pain bilateral upper quadrant, left variocele Last PSA - 1.54 Pt unable to urinate at this time. Urinated before coming to appt. IPSS: 11 Denies hematuria, denies dysuria. Has lower abdominal pain, pelvic, left testicle pain. Has left flank pain. Pt is urinating once every hour, and has some urgency History of Present Illness Tests reviewed: reviewed UA, PSA I have reviewed the previous health record information and history for this patient from Dr. Condon and external providers. I have reviewed and verified the staff HPI to be accurate for this encounter. Review of Systems PHQ Score Initial Depression Screen Score: 3 SCORE Detailed Depression Screen Score: 6 Total Depression Screen Score: 9 ROS - Provider Constitutional: denies weight loss, denies hot flashes. Eyes: denies eye problems. Gastrointestinal: denies nausea, denies vomiting. Cardiovascular: denies chest pain or angina. Integumentary: no dryness Musculoskeletal: denies musculoskeletal symptoms. ENMT: denies otolaryngeal symptoms. Respiratory: no shortness of breath. Heme/Lymph: denies easy bleeding tendency, denies easy bruising tendency. Psychiatric: no confusion, no anxiety. Genitourinary: See HPI. Physical Exam Vitals & Measurements T: 36.8 ???C(Temporal Artery) HR: 85(Peripheral) RR: 16 BP: 132/84 HT: 71 in HT: 180 cm WT: 106 kg WT: 233.69 lb BMI: 32.72 General Appearance: alert, no distress, well nourished, well developed male. Head: normocephalic . Eyes: normal orbit and globe. ENMT: normal examination of external ears. Chest: Lungs CTA, respirations non labored. Cardiovascular: regular rate and rhythm. Abdomen: soft, non distended, moderateL sided tenderness, no mass or organomegaly, no hernia. Genitourinary: normal scrotum, normal testes, normal urethra, normal epididymis, abnormal vas deferens/spermatic cord is tender on left. no hernia Flank Pain: none. Bladder: nonpalpable. Penis: normal shaft, normal glans. Lymph Nodes: unremarkable palpation of the cervical area. Skin: warm, dry, no bruising. Psychiatric: cooperative, affect appropriate for age, normal judgement, euthymic mood. Assessment/Plan Coleman is a 54 yo male new pt here to re-establish care due to abdominal pain. Prior DLS pt 1. BPH with urinary obstruction (N40.1: Benign prostatic hyperplasia with lower urinary tract symptoms) IPSS 11. Not taking any BPH meds. Does not think he has tried any. Reports he voids frequently. Feels he empties most of the time. Does have to strain at times. Gets up 1x/night to void. Discussed pain episodes is likely due to prostatitis which can be caused by poor urination. Recommended starting prostate medication to help improved emptying. Possible SEs discussed. Pt wishes to try this. -Start Alfuzosin ER 10 mg qd. Rx sent to [facility]. 2. Groin pain (R10.30: Lower abdominal pain, unspecified) S/p L varicocelectomy 03/31/19 by DLS. Has had ongoing sharp pain since procedure. Radiates from lower abdomen to scrotal area. Pain is not always persistent but has aching in groin often. Denies pain/discomfort with urination. No hx of kidney stones. Also reports he has flares after intercourse. Explained he likely has prostatitis. He was advised about the different possible causes of bacterial and non-bacterial prostatitis. He needs to complete the course of prescribed antibiotics. He understands that the symptoms improve if he decreases his exercise and activity level. Anti-inflammatory medicines can also be helpful, as well as frequent ejaculations. Hot baths are also helpful in easing the discomfort. Also recommended KUB to r/o kidney stones. -Take doxycycline 100mg bid x1 month. Rx sent to [facility]. -Start Alfuzosin ER 10 mg qd per #1 -Obtain KUB to r/o stones 3. Chronic prostatitis (N41.1: Chronic prostatitis) See #2. 4. Screening PSA (prostate specific antigen) (Z12.5: Encounter for screening for malignant neoplasm of prostate) Most recent PSA 01/29/24 - 1.54. Monitored by PCP. No fam hx of prostate ca. -Cont PSA monitoring w/ PCP Follow-up With When Contact Information Eren SHOOK MD, URL [facility] [address], [place] [phone] Additional Instructions: 3 mos (new med) Patient Education Prostatitis Benign Prostatic Hyperplasia I, Kim Collazo, personally scribed for Dr. Shook on 08/02/2024 10:43:48. . Documentation recorded by the kalibKim renteria, accurately reflects the services(s) I performed and decisions made by me. Authenticated by Dr. Carlin (more content not included)... Normal [facility] Comment on above: Result Comment: Electronically Signed By : Eren SHOOK MD\.br\Date and Time Signed: 08/02/24 10:46 EST\.br\Electronically Co-Signed By: Kim Collazo\.br\Date and Time Co-Signed: 08/02/24 10:[address] ABD/PELV WO W CONon 02-05 CT ABD/PELV WO W CON EXAMINATION: CT ABD/PELV WO W CON, 02/02/2022 8:35 AM EDT HISTORY: Right lower quadrant pain COMPARISON: 10/26/2019 TECHNIQUE: CT scan of the abdomen and pelvis was performed without and with IV contrast. CT dose reduction technique was used, including Automated Exposure Control. FINDINGS: LUNG BASES: No visible pulmonary or pleural disease. LIVER: No enlargement, atrophy, abnormal density, or significant focal lesion. BILIARY: No dilatation or calcification. PANCREAS: No lesion, fluid collection, ductal dilatation, or atrophy. SPLEEN: No enlargement or focal lesion. ADRENALS: No mass or enlargement. KIDNEYS: Normal right. Left lower pole parapelvic cysts. No hydronephrosis or obstructing nephrolithiasis BOWEL/MESENTERY: No visible mass, obstruction, or bowel wall thickening. AORTA/VASCULAR: No aortic aneurysm. Mild to moderate atherosclerosis RETROPERITONEUM: No mass or adenopathy. LYMPH NODES: No adenopathy. URINARY BLADDER: No visible focal wall thickening, lesion, or calculus. PELVIC ORGANS: Prostate calcifications ABDOMINAL WALL: No mass or hernia. BONES: No bony lesion or fracture. OTHER: Negative. IMPRESSION: No acute abnormality Electronically authenticated by: FLAVIO SHIELDS Date: 2022-02-05 07:32 Normal [facility] XR HIPS MELI 5V W PELVISon XR HIPS MELI 5V W PELVIS EXAMINATION: XR HIPS MELI 5V W PELVIS HISTORY: Pain in right hip joint COMPARISON: No relevant comparison available. FINDINGS: RIGHT FINDINGS: BONES: Normal. No significant arthropathy or acute abnormality. SOFT TISSUES: Negative. No visible soft tissue swelling. OTHER: Negative. LEFT FINDINGS: BONES: Normal. No significant arthropathy or acute abnormality. SOFT TISSUES: Negative. No visible soft tissue swelling. OTHER: Negative. IMPRESSION: RIGHT CONCLUSION: Normal LEFT CONCLUSION: Normal Electronically authenticated by: FLAVIO SHIELDS Date: 2022-01-10 16:53 Normal [facility] XR LSPINE 2_3 VIEWSon 2021 XR LSPINE 2_3 VIEWS EXAMINATION: XR LSPINE 2_3 VIEWS HISTORY: Disorder of sacrum COMPARISON: No relevant comparison available. FINDINGS: BONES: Normal alignment with no acute fracture or spondylolisthesis. Mild degenerative spondylosis and facet osteoarthropathy DISC SPACES: Mild disc space narrowing L4-S1 PARASPINOUS: Negative. No paraspinous abnormality is seen. OTHER: Mild vascular calcifications IMPRESSION: Mild degenerative changes Electronically authenticated by: FLAVIO SHIELDS Date: 2022-01-10 16:54 Normal [facility] CBC AUTO DIFFon 08-07-2021 BASO # 0.1 103/ul Normal 0.0-0.1 [facility] Comment on above: Performed By: #### CBC #### [facility] [address] [address] [address] Maximus Fernandez Basophils/100 WBC (Bld) 0.6 % Normal 0.2-2.0 [facility] Comment on above: Performed By: #### CBC #### [facility] [address] [place] [address] Dr. Maximus Fernandez EO # 0.1 103/ul Normal 0.0-0.7 [facility] Comment on above: Performed By: #### CBC #### [facility] [address] [address] [address] Maximus Fernandez Eosinophils/100 WBC (Bld) 1.3 % Normal 0.9-7.0 [facility] Comment on above: Performed By: #### CBC #### [facility] [address] [place] [address] Dr. Maximus Fernandez Erythrocyte distribution width (RBC) [Ratio] 11.9 % Normal 11.0-15.0 [facility] Comment on above: Performed By: #### CBC #### [facility] [address] [address] [address] Maximus Fernandez Hematocrit (Bld) [Volume fraction] 44.6 % Normal 42.0-54.0 [facility] Comment on above: Performed By: #### CBC #### [facility] [address] [address] [address] Maximus Fernandez Hemoglobin (Bld) [Mass/Vol] 15.5 g/dL Normal 14.0-18.0 [facility] Comment on above: Performed By: #### CBC #### [facility] [address] [place] [address] Dr. Maximus Fernandez IG # 0.03 10e3/ul Normal 0.00-0.03 [facility] Comment on above: Performed By: #### CBC #### [facility] [address] [place] [address] Dr. Maximus Fernandez IG % 0.4 % Normal 0.0-0.5 [facility] Comment on above: Performed By: #### CBC #### [facility] [address] [place] [address] Dr. Maximus Fernandez LYMPH # 2.1 103/ul Normal 1.2-3.8 [facility] Comment on above: Performed By: #### CBC #### [facility] [address] [place] [address] Dr. Maximus Fernandez Lymphocytes/100 WBC (Bld) 26.8 % Normal 20.5-60.0 [facility] Comment on above: Performed By: #### CBC #### [facility] [address] [place] [address] Dr. Maximus Fernandez MANUAL DIFF REQ NO Normal [facility] Comment on above: Performed By: #### CBC #### [facility] [address] [place] [address] Dr. Maximus Fernandez MCH (RBC) [Entitic mass] 32.0 pg Normal 25.9-34.0 [facility] Comment on above: Performed By: #### CBC #### [facility] [address] [place] [address] Dr. Maximus Fernandez MCHC (RBC) [Mass/Vol] 34.8 g/dL Normal 29.9-35.2 [facility] Comment on above: Performed By: #### CBC #### [facility] [address] [place] [address] Dr. Maximus Fernandez MCV (RBC) [Entitic vol] 92.0 fL Normal 80.0-94.0 [facility] Comment on above: Performed By: #### CBC #### [facility] [address] [place] [address] Dr. Maximus Fernandez MONO # 0.8 103/ul Normal 0.3-0.8 [facility] Comment on above: Performed By: #### CBC #### [facility] [address] [address] [address] Maximus Fernandez Monocytes/100 WBC (Bld) 9.9 % Normal 1.7-12.0 [facility] Comment on above: Performed By: #### CBC #### [facility] [address] [address] [address] Maximus Fernandez NEUT # 4.8 103/ul Normal 1.4-6.5 [facility] Comment on above: Performed By: #### CBC #### [facility] [address] [address] [address] Maximus Fernandez Neutrophils/100 WBC (Bld) 61.0 % Normal 43.0-75.0 [facility] Comment on above: Performed By: #### CBC #### [facility] [address] [place] [address] Dr. Maximus Fernandez Platelet mean volume (Bld) [Entitic vol] 9.2 fL Critically low 9.5-13.5 [facility] Comment on above: Performed By: #### CBC #### [facility] [address] [place] [address] Dr. Maximus Fernandez PLT 276 103/ul Normal 150-450 [facility] Comment on above: Performed By: #### CBC #### [facility] [address] [place] [address] Dr. Maximus Fernandez RBC 4.85 106/ul Normal 4.70-6.10 [facility] Comment on above: Performed By: #### CBC #### [facility] [address] [place] [address] Dr. Maximus Fernandez WBC 7.8 103/ul Normal 4.0-11.0 [facility] Comment on above: Performed By: #### CBC #### [facility] [address] [place] [address] Dr. Maximus Fernandez LIPID PROFILEon 08-07-2021 CHOL-HDL RATIO NORM SEE BELOW Normal [facility] Comment on above: Result Comment: 3.3 - 4.4 LOW RISK 4.4 - 7.1 AVERAGE RISK 7.1 - 11.0 MODERATE RISK >11.0 HIGH RISK Performed By: #### L IPID, CMP #### [facility] [address] [place] [address] Dr. Maximus Fernandez Cholesterol [Mass/Vol] 208 mg/dL Critically high <=200 [facility] Comment on above: Performed By: #### LIPID, CMP #### [facility] [address] [place] [address] Dr. Maximus Fernandez Cholesterol in HDL [Mass/Vol] 35 mg/dL Normal [facility] Comment on above: Performed By: #### LIPID, CMP #### [facility] [address] [place] [address] Dr. Maximus Fernandez Cholesterol in LDL [Mass/Vol] 151.4 mg/dL Normal [facility] Comment on above: Performed By: #### LIPID, CMP #### [facility] [address] [place] [address] Dr. Maximus Fernandez Cholesterol.tota l/Cholesterol in HDL [Mass ratio] 5.9 {ratio} Normal [facility] Comment on above: Performed By: #### LIPID, CMP #### [facility] [address] [place] [address] Dr. Maximus Fernandez HDL NORMAL > or = 60 mg/dl - LO W CARDIOVASCULAR RISK <40 mg/dl - HIGH CARDIOVASCULAR RISK Normal [facility] Comment on above: Performed By: #### LIPID, CMP #### [facility] [address] [place] [address] Dr. Maximus Fernandez LDL CALC NORMAL SEE BELOW Normal [facility] Comment on above: Result Comment: <100 mg/dl OPTIMAL 100 - 129 mg/dl NEAR OR ABOVE OPTIMAL 130 - 159 mg/dl BORDERLINE HIGH 160 - 189 mg/dl HIGH >190 mg/dl VERY HIGH Performed By: #### L IPID, CMP #### [facility] [address] [place] [address] Dr. Maximus Fernandez Triglyceride [Mass/Vol] 108 mg/dL Normal <=150 [facility] Comment on above: Performed By: #### LIPID, CMP #### [facility] [address] [place] [address] Dr. Maximus Fernandez VLDL CALC 21.6 mg/dL Normal [facility] Comment on above: Performed By: #### LIPID, CMP #### [facility] [address] [address] [address] Maximus Fernandez PROF 14(COMP METB)on 022 Albumin [Mass/Vol] 4.2 g/dL Normal 3.5-5.0 [facility] Comment on above: Performed By: #### LIPID, CMP #### [facility] [address] [place] [address] Dr. Maximus Fernandez Albumin/Globulin [Mass ratio] 1.2 {ratio} Normal [facility] Comment on above: Performed By: #### LIPID, CMP #### [facility] [address] [place] [address] Dr. Maximus Fernandez ALP [Catalytic activity/Vol] 100 U/L Normal 38-126 [facility] Comment on above: Performed By: #### LIPID, CMP #### [facility] [address] [place] [address] Dr. Maximus Fernandez ALT [Catalytic activity/Vol] 60 U/L Normal 21-72 [facility] Comment on above: Performed By: #### LIPID, CMP #### [facility] Laboratory [address] [place] [address] Dr. Maximus Fernandez Anion gap [Moles/Vol] 8.9 mmol/L Normal [facility] Comment on above: Performed By: #### LIPID, CMP #### [facility] Laboratory [address] [place] [address] Dr. Maximus Fernandez AST [Catalytic activity/Vol] 26 U/L Normal 17-59 [facility] Comment on above: Performed By: #### LIPID, CMP #### [facility] [address] [place] [address] Dr. Maximus Fernandez Bilirubin [Mass/Vol] 1.2 mg/dL Normal 0.2-1.3 [facility] Comment on above: Performed By: #### LIPID, CMP #### [facility] [address] [place] [address] Dr. Maximus Fernandez Calcium [Mass/Vol] 8.8 mg/dL Normal 8.4-10.2 [facility] Comment on above: Performed By: #### LIPID, CMP #### [facility] [address] [place] [address] Dr. Maximus Fernandez Chloride [Moles/Vol] 102 mmol/L Normal 98-107 [facility] Comment on above: Performed By: #### LIPID, CMP #### [facility] [address] [place] [address] Dr. Maximus Fernandez CO2 [Moles/Vol] 29.4 mmol/L Normal 22.0-30.0 [facility] Comment on above: Performed By: #### LIPID, CMP #### [facility] [address] [place] [address] Dr. Maximus Fernandez Creatinine [Mass/Vol] 1.10 mg/dL Normal 0.66-1.25 [facility] Comment on above: Performed By: #### LIPID, CMP #### [facility] [address] [place] [address] Dr. Maximus Fernandez EGFR-AF NEPALESE >60 Normal >=60 [facility] Comment on above: Performed By: #### LIPID, CMP #### [facility] [address] [place] [address] Dr. Maximus Fernandez EGFR-NON AF NEPALESE >60 Normal >=60 [facility] Comment on above: Performed By: #### LIPID, CMP #### [facility] [address] [place] [address] Dr. Maximus Fernandez Globulin (S) [Mass/Vol] 3.4 g/dL Normal [facility] Comment on above: Performed By: #### LIPID, CMP #### [facility] [address] [place] [address] Dr. Maximus Fernandez Glucose [Mass/Vol] 98 mg/dL Normal 74-106 [facility] Comment on above: Performed By: #### LIPID, CMP #### [facility] [address] [place] [address] Dr. Maximus Fernandez Potassium [Moles/Vol] 4.3 mmol/L Normal 3.4-5.0 [facility] Comment on above: Performed By: #### LIPID, CMP #### [facility] [address] [place] [address] Dr. Maximus Fernandez Protein [Mass/Vol] 7.6 g/dL Normal 6.1-8.2 [facility] Comment on above: Performed By: #### LIPID, CMP #### [facility] [address] [place] [address] Dr. Maximus Fernandez Sodium [Moles/Vol] 136 mmol/L Critically low 137-145 [facility] Comment on above: Performed By: #### LIPID, CMP #### [facility] [address] [place] [address] Dr. Maximus Fernandez Urea nitrogen [Mass/Vol] 17.0 mg/dL Normal 9.0-20.0 [facility] Comment on above: Performed By: #### LIPID, CMP #### [facility] [address] [place] [address] Dr. Maximus Fernandez Urea nitrogen/Creatin ine [Mass ratio] 15.5 mg/mg Normal [facility] Comment on above: Performed By: #### LIPID, CMP #### [facility] [address] [place] [address] Dr. Maximus Fernandez UA RANDOM W/MICROSCOPICon BACTERIA NONE SEEN Normal NONE SEEN [facility] Comment on above: Performed By: #### UAMIC #### [facility] [address] [place] [address] Dr. Maximus Fernandez Bilirubin Ql (U) Negative Normal NEGATIVE [facility] Comment on above: Performed By: #### UAMIC #### [facility] [address] [place] [address] Dr. Maximus Fernandez CAST NONE SEEN Normal NONE SEEN [facility] Comment on above: Performed By: #### UAMIC #### [facility] [address] [place] [address] Dr. Maximus Fernandez Clarity (U) CLEAR Normal CLEAR [facility] Comment on above: Performed By: #### UAMIC #### [facility] [address] [place], [place] [id number] Dr. Maximus Fernandez Color (U) YELLOW Normal YELLOW [facility] Comment on above: Performed By: #### UAMIC #### [facility] [address] [place] [address] Dr. Maximus Fernandez Crystals LM Nom (Urine sed) NONE SEEN Normal NONE SEEN [facility] Comment on above: Performed By: #### UAMIC #### [facility] [address] [place] [address] Dr. Maximus Fernandez Epithelial cells LM Ql (Urine sed) FEW Abnormal NONE SEEN /RARE [facility] Comment on above: Performed By: #### UAMIC #### [facility] [address] [place] [address] Dr. Maximus Fernandez Glucose Ql (U) Negative Normal NEGATIVE [facility] Comment on above: Performed By: #### UAMIC #### [facility] [address] [place] [address] Dr. Maximus Fernandez Hemoglobin Ql (U) Negative Normal NEGATIVE [facility] Comment on above: Performed By: #### UAMIC #### [facility] [address] [place] [address] Dr. Maximus Fernandez Ketones Ql (U) Negative Normal NEGATIVE [facility] Comment on above: Performed By: #### UAMIC #### [facility] [address] [place] [address] Dr. Maximus Fernandez LEUKOCYTES Negative Normal NEGATIVE [facility] Comment on above: Performed By: #### UAMIC #### [facility] [address] [place] [address] Dr. Maximus Fernandez MUCOUS LARGE Abnormal NONE SEEN [facility] Comment on above: Performed By: #### UAMIC #### [facility] [address] [place] [address] Dr. Maximus Fernandez Nitrite Ql (U) Negative Normal NEGATIVE [facility] Comment on above: Performed By: #### UAMIC #### [facility] [address] [place] [address] Dr. Maximus Fernandez pH (U) 6.0 [pH] Normal 5-9 [facility] Comment on above: Performed By: #### UAMIC #### [facility] [address] [place] [address] Dr. Maximus Fernandez RBC NONE SEEN Abnormal 0-2 [facility] Comment on above: Performed By: #### UAMIC #### [facility] [address] [place] [address] Dr. Maximus Fernandez SPEC GRAVITY 1.020 Normal 1.005-<=1.02 5 [facility] Comment on above: Performed By: #### UAMIC #### [facility] [address] [place] [address] Dr. Maximus Fernandez UA PROTEIN Negative Normal NEGATIVE/ TRACE [facility] Comment on above: Performed By: #### UAMIC #### [facility] [address] [place] [address] Dr. Maximus Fernandez Urobilinogen Qn (U) 0.2 {Mihaela'U}/dL Normal 0.2 - 1.0 [facility] Comment on above: Performed By: #### UAMIC #### [facility] [address] [place] [address] Dr. Maximus Fernandez WBC NONE SEEN Normal NONE SEEN [facility] Comment on above: Performed By: #### UAMIC #### [facility] [address] [place] [address] Dr. Maximus Fernandez Vital Signs Date Time Vital Sign Value Performing Clinician Facility 01-26-2025 13:34-0400 Body height 180.34 cm Yaya [employer] DO Work Phone: [facility] 01-26-2025 13:34-0400 Body mass index (BMI) [Ratio] 32.1 kg/m2 Yaya Ball DO Work Phone: [facility] 01-26-2025 13:34-0400 Body weight 104.49 kg Yaya Ball DO Work Phone: [facility] 01-26-2025 13:34-0400 Diastolic blood pressure 80 mm[Hg] Yaya Ball DO Work Phone: [facility] 01-26-2025 13:34-0400 Heart rate 81 /min Yaya Ball DO Work Phone: [facility] 01-26-2025 13:34-0400 Respiratory rate 12 /min Yaya Ball DO Work Phone: [facility] 01-26-2025 13:34-0400 Systolic blood pressure 130 mm[Hg] Yaya Ball DO Work Phone: [facility] 08-02-2024 10:05-0500 Body temperature 98.24 [degF] Eren SHOOK [facility] 08-02-2024 10:05-0500 Diastolic blood pressure 84 mm[Hg] Eren SHOOK [facility] 08-02-2024 10:05-0500 Heart rate 85 /min Eren SHOOK [facility] 08-02-2024 10:05-0500 Respiratory rate 16 /min Eren SHOOK [facility] 08-02-2024 10:05-0500 Systolic blood pressure 132 mm[Hg] Eren SHOOK [facility] 01-19-2024 14:11-0400 Body height 180.34 cm [facility] 01-19-2024 14:11-0400 Body mass index (BMI) [Ratio] 31.8 kg/m2 [facility] 01-19-2024 14:11-0400 Body weight 103.47 kg [facility] 01-19-2024 14:11-0400 Diastolic blood pressure 89 mm[Hg] [facility] 01-19-2024 14:11-0400 Heart rate 81 /min [facility] 01-19-2024 14:11-0400 Respiratory rate 12 /min [facility] 01-19-2024 14:11-0400 Systolic blood pressure 139 mm[Hg] [facility] 12-16-2022 10:30-0400 Body height 175.9 cm Yaya Ball Other [employer] Other 12-16-2022 10:30-0400 Body mass index (BMI) [Ratio] 34.33 kg/m2 Yaya Ball Other [employer] Other 12-16-2022 10:30-0400 Body weight 106.23 kg Yaya Ball Other [employer] Other 12-16-2022 10:30-0400 Diastolic blood pressure 80 mm[Hg] Yaya Ball Other [employer] Other 12-16-2022 10:30-0400 Respiratory rate 16 /min Yaya Ball Other [employer] Other 12-16-2022 10:30-0400 Systolic blood pressure 130 mm[Hg] Yaya Ball Other [employer] Other 06-25-2021 10:00-0500 Body height 175.9 cm Demetria Ginty Other [employer] Other 06-25-2021 10:00-0500 Body mass index (BMI) [Ratio] 33.28 kg/m2 Demetria Ginty Other [employer] Other 06-25-2021 10:00-0500 Body temperature 97.1 [degF] Demetria Ginty Other [employer] Other 06-25-2021 10:00-0500 Body weight 102.97 kg Demetria Ginty Other [employer] Other 06-25-2021 10:00-0500 Diastolic blood pressure 99 mm[Hg] Demetria Ginty Other [employer] Other 06-25-2021 10:00-0500 Respiratory rate 18 /min Demetria Liananty Other [employer] Other 06-25-2021 10:00-0500 SaO2% (BldA) [Mass fraction] 99 % Demetria Liananty Other [employer] Other 06-25-2021 10:00-0500 Systolic blood pressure 136 mm[Hg] Demetria Liananty Other [employer] Other Encounters Encounter Date Encounter Type Care Provider Facility Start: 02-28-2025 ambulatory Eren SHOOK Facili ty:[facility] Start: 01-26-2025 End: 01-26-2025 ambulatory Yaya Luís Work Phone: [facility] Work Phone: Start: 01-26-2025 End: 01-26-2025 Patient encounter procedure Yaya Luís [facility] Work Phone: Start: 01-26-2025 End: 01-26-2025 Patient encounter status [facility] Start: 11-05-2024 End: 11-05-2024 ambulatory Eren SHOOK Facility: [facility] Start: 11-05-2024 End: 11-05-2024 Patient encounter procedure Eren SHOOK [facility] Start: 10-14-2024 End: 10-14-2024 ambulatory Eren SHOOK Facility:[facility] Start: 10-14-2024 End: 10-14-2024 Patient encounter procedure Eren SHOOK [facility] Start: 09-07-2024 End: 09-07-2024 Office outpatient new 30 minutes Isabel Herrera MD Work Phone: [facility] Comment on above: Other seborrheic rachel matitis (Primary Dx); Lentigines; Seborrheic keratosis Start: 09-07-2024 End: 09-07-2024 ambulatory ISABEL HERRERA Not Available Start: 09-07-2024 End: 09-07-2024 Elton Herrera MD Work Phone: [facility] Start: 09-07-2024 End: 09-07-2024 Bamboo flowsamy Herrera MD Work Phone: [facility] Start: 08-02-2024 End: 08-02-2024 ambulatory Eren SHOOK Facility:[facility] Start: 08-02-2024 End: 08-02-2024 Patient encounter procedure Eren SHOOK [facility] Start: 01-19-2024 End: 01-19-2024 ambulatory [facility] Work Phone: Start: 01-19-2024 End: 01-19-2024 Encounter for general adult medical examination without abnormal findings [facility] Start: 01-19-2024 End: 01-19-2024 Patient encounter procedure [facility] Work Phone: Start: 06-25-2023 End: 06-25-2023 ambulatory Yaya Staley Other [employer] Other Start: 06-25-2023 Telephone encounter Yaya Staley [facility] Start: 12-16-2022 End: 12-16-2022 ambulatory Yaya Staley Other [employer] Other Start: 12-16-2022 Encounter for genera l adult medical examination without abnormal findings Yaya Staley [facility] Start: 12-16-2022 Periodic preventive med est patient 40-64yrs Yaya Staley [facility] Start: 12-01-2022 End: 12-01-2022 ambulatory Yaya Staley Other [employer] Other Start: 12-01-2022 Telephone encounter Yaya Staley [facility] Start: 02-02-2022 End: 02-03-[address] YAYA STALEY Facility:[facility] Start: 01-10-2022 End: 01-11-[address] YAYA STALEY Facility:[facility] Start: 08-09-2021 Encounter for genera l adult medical examination without abnormal findings DR YAYA STALEY [facility] Start: 08-07-2021 End: 08-08-[address] YAYA STALEY Facility:[facility] Start: 08-07-2021 End: 08-08-2021 Encounter for general adult medical examination without abnormal findings DR YAYA STALEY Facility:[facility] Start: 08-01-2021 Encounter for genera l adult medical examination without abnormal findings Yaya Staley Other [employer] Other Start: 06-25-2021 End: 06-25-2021 ambulatory Demetria Ginty Other [facility] Other Start: 06-25-2021 Office outpatient vi sit 15 minutes Demetria Ginty [facility] Procedures Date Procedure Procedure Detail Performing Clinician Start: 08-07-[address] YAYA STALEY Comment on above: Performed By: #### PSASC #### [facility] [address] [place] [address] Dr. Maximus Fernandez Start: 03-31-2019 Excision of varicocele Eren SHOOK Start: 04-12-2014 right knee arthroscopy with chondroplasty, medial and lateral femoral condyle, anterior horn partial lateral meniscectomy, allograft anterior cruciate ligament reconstruction Erenrl SHOOK Start: 03-02-2010 Esophagogastroduodenoscopy Eren NOAM S Arthroscopy of knee Eren SHOOK Elbow fracture - closed (disorder) [facility] GEN Comment on above: PINNING History of operative procedure on knee Eren SHOOK Tonsillectomy Eren SHOOK WRIST EXPLORATION 2 Eren SHOOK Comment on above: CARTILAGE TRIMMING LEFT Plan of Treatment Date Care Activity Detail Author Start: 09-08-2025 End: 09-08-2025 Patient encounter procedure 09/08/2025 3:35 PM EDT Office Visit [facility] [address] [place] [phone] Isabel Herrera MD [address] [place] [address] [facility] Start: 09-07-2024 End: 09-07-2024 Patient encounter procedure 09/07/2024 4:05 PM EDT Office Visit [facility] [address] [place] [phone] Isabel Herrera MD [address] [place] [address] Arrived [facility] Comment on above: Arrived Comprehensive metabo lic 1999 panel - Serum or Plasma [facility] Comprehensive metabo lic 1999 panel - Serum or Plasma [facility] Immunizations Immunization Date Immunization Notes Care Provider Fa justin 10-06-2020 COVID-19 Vaccine Pfizer - Documentation Purposes Only Yaya Staley Other [facility] NEGATED: Highlighted row has not occurred!06-22-2019 influenza virus vaccine, live, attenuated, for intranasal use Eren SHOOK [facility] Payers Date Payer Category Payer Private Health Insurance [id number] 2024 Unknown [id number] 2024 Blue Cross Blue Shield BCBS [id number] 2024 Unknown [id number] 2024 Unknown [id number] 1970 Unknown [id number] .[id number] 1970 Unknown [id number] .[id number] 1970 Unknown [id number] .[id number] .[id number] 1970 Unknown [id number] .[id number] .[id number] 1970 Unknown [id number] .2.727 1970 Unknown [id number] .[id number] .2.727 1970 Unknown [id number] .[id number] .[id number] 1970 Unknown [id number] .[id number] 1959 Blue Cross Blue Shield [id number] Private Health Insurance [id number] Private Health Insurance Marty [employer] [id number] Private Health Insurance [employer] [facility] [id number] Self-pay Self Pay [id number] Social History Date Type Detail Facility Unknown if ever smoked [employer] Other Start: 09-07-2024 Sex Assigned At [facility] Start: 12-16-2022 End: 11-05-2024 Tobacco smoking status NHIS Never smoked tobacco (finding) [facility] Start: 1970 Sex Assigned At Male [facility] Tobacco smoking status Never [facility] consumption unknown [facility] Start: 1970 Sex assigned at Not on file [facility] Start: 09-07-2024 Tobacco use and exposure Smokeless tobacco non-user [facility] Start: 09-07-2024 History of Social function [facility] Sexual Orientation [facility] Start: 02-15-2011 Sex Male (finding) [facility] Functional Status Date Assessment Result Facility 08-02-2024 Functional Status N/A [facility] Clinical Notes 06-25-2021 to 11-05-2024 Isabel Herrera MD - 09/07/2024 4:05 PM EDT Note Date & Type Note Facility 11-05-2024 Hospital Discharge instructions Patient Education 11/05/2024 11:00:32 Prostatitis Prostatitis Prostatitis is swelling or inflammation of the prostate gland, also called the prostate. This gland is about 1.5 inches wide and 1 inch high, and it is involved in making semen. The prostate is located below a man's bladder, in front of the rectum. There are four types of prostatitis: Chronic prostatitis (CP), also called chronic pelvic pain syndrome (CPPS). This is the most common type of prostatitis. It is associated with increased muscle tone in the area between the hip bones (pelvic area), around the prostate. This type is also known as a pelvic floor disorder. Chronic bacterial prostatitis. This type usually results from an acute bacterial infection in the prostate gland that keeps coming back or has not been treated properly. The symptoms are less severe than those caused by acute bacterial prostatitis, which lasts a shorter time. Asymptomatic inflammatory prostatitis. This type does not have symptoms and does not need treatment. This is diagnosed when tests are done for other disorders of the urinary tract or reproductive tract. Acute bacterial prostatitis. This type starts quickly and results from an acute bacterial infection in the prostate gland. It is usually associated with a bladder infection, high fever, and chills. This is the least common type of prostatitis. What are the causes? Bacterial prostatitis is caused by an infection from bacteria. Chronic nonbacterial prostatitis may be caused by: Factors related to the nervous system. This system includes thebrain, spinal cord, and nerves. An autoimmune response. This happens when the body's disease-fighting system attacks healthy tissue in the body by mistake. Psychological factors. These have to do with how the mind works. The causes of the other types of prostatitis are usually not known. What are the signs or symptoms? Symptoms of this condition depend on the type of prostatitis you have. Acute bacterial prostatitis Symptoms may include: Pain or burning during urination. Frequent and sudden urges to urinate. Trouble starting to urinate. Fever. Chills. Pain in your muscles or joints, lower back, or lower abdomen. Other types of prostatitis Symptoms may include: Sudden urges to urinate, or urinating often. Trouble starting to urinate. Weak urine stream. Dribbling after urination. Discharge coming from the penis. Pain in the testicles, the penis, or the tip of the penis. Pain in the area in front of the rectum and below the scrotum (perineum). Pain when ejaculating. How is this diagnosed? This condition may be diagnosed based on: A physical and medical exam. A digital rectal exam. For this, the health care provider may use a finger to feel the prostate. A urine test to check for bacteria. A semen sample or blood tests. Ultrasound. Urodynamic tests to check how your body handles urine. Cystoscopy to look inside your bladder or inside the part of your body that drains urine from the bladder (urethra). How is this treated? Treatment for this condition depends on the type of prostatitis. Treatment may involve: Medicines to relieve pain or inflammation, or to help relax your muscles. Physical therapy. Heat therapy. Biofeedback. These techniques help you control certain body functions. Relaxation exercises. Antibiotic medicine, if your condition is caused by bacteria. Sitz baths. These warm water baths help to relax your pelvic floor muscles, which helps to relieve pressure on the prostate. Follow these instructions at home: Medicines Take busp-ezq-kefzqsm and prescription medicines only as told by your health care provider. If you were prescribed an antibiotic medicine, take it as told by your health care provider. Do not stop using the antibiotic even if you start to feel better. Managing pain and swelling Take sitz baths as directed by your health care provider. For a sitz bath, sit in warm water that is deep enough to cover your hips and buttocks. If directed, apply heat to the affected area as often as told by your health care provider. Use the heat source that your health care provider recommends, such as a moist heat pack or a heating pad. ?Place a towel between your skin and the heat source. ?Leave the heat on for 20 30 minutes. ?Remove the heat if your skin turns bright red. This is especially important if you are unable to feel pain, heat, or cold. You may have a greater risk of getting burned. General instructions Do exercises as told by your health care provider, if you were prescribed physical therapy, biofeedback, or relaxation exercises. Keep all follow-up visits as told by your health care provider. This is important. Where to find more information [employer] of [employer] and Digestive and Kidney Diseases: https://www.niddk.nih.gov Contact a health care provider if: Your symptoms get worse. You have a fever. Get help right away if: You have chills. You feel light-headed or feel like you may faint. You cannot urinate. You have blood or blood clots in your urine. Summary Prostatitis is swelling or inflammation of the prostate gland. Treatment for this condition depends on the type of prostatitis. Take vsey-bhg-ducxary and prescription medicines only as told by your health care provider. Get help right away of you have chills, feel light-headed, feel like you may faint, cannot urinate, or have blood or blood clots in your urine. This information is not intended to replace advice given to you by your health care provider. Make sure you discuss any questions you have with your health care provider. Document Revised: 04/03/2023 Document Reviewed: 04/03/2023 [employer]otted Patient Education 2023 [employer]. Follow Up Care 08/02/2024 10:45:04 With:GEN ADAM, Eren Chin, URL Address: [address] [place], [place] [id number]- When: Unknown [facility] 11-05-2024 Note Patient Education Infectious Disease Prostatitis Prostatitis is swelling or inflammation of the prostate gland, also called the prostate. This gland is about 1.5 inches wide and 1 inch high, and it is involved in making semen. The prostate is located below a man's bladder, in front of the rectum. There are four types of prostatitis: ??? Chronic prostatitis (CP), also called chronic pelvic pain syndrome (CPPS). This is the most common type of prostatitis. It is associated with increased muscle tone in the area between the hip bones (pelvic area), around the prostate. This type is also known as a pelvic floor disorder. ??? Chronic bacterial prostatitis. This type usually results from an acute bacterial infection in the prostate gland that keeps coming back or has not been treated properly. The symptoms are less severe than those caused by acute bacterial prostatitis, which lasts a shorter time. ??? Asymptomatic inflammatory prostatitis. This type does not have symptoms and does not need treatment. This is diagnosed when tests are done for other disorders of the urinary tract or reproductive tract. ??? Acute bacterial prostatitis. This type starts quickly and results from an acute bacterial infection in the prostate gland. It is usually associated with a bladder infection, high fever, and chills. This is the least common type of prostatitis. What are the causes? Bacterial prostatitis is caused by an infection from bacteria. Chronic nonbacterial prostatitis may be caused by: ??? Factors related to the nervous system. This system includes thebrain, spinal cord, and nerves. ??? An autoimmune response. This happens when the body's disease-fighting system attacks healthy tissue in the body by mistake. ??? Psychological factors. These have to do with how the mind works. The causes of the other types of prostatitis are usually not known. What are the signs or symptoms? Symptoms of this condition depend on the type of prostatitis you have. Acute bacterial prostatitis Symptoms may include: ??? Pain or burning during urination. ??? Frequent and sudden urges to urinate. ??? Trouble starting to urinate. ??? Fever. ??? Chills. ??? Pain in your muscles or joints, lower back, or lower abdomen. Other types of prostatitis Symptoms may include: ??? Sudden urges to urinate, or urinating often. ??? Trouble starting to urinate. ??? Weak urine stream. ??? Dribbling after urination. ??? Discharge coming from the penis. ??? Pain in the testicles, the penis, or the tip of the penis. ??? Pain in the area in front of the rectum and below the scrotum (perineum). ??? Pain when ejaculating. How is this diagnosed? This condition may be diagnosed based on: ??? A physical and medical exam. ??? A digital rectal exam. For this, the health care provider may use a finger to feel the prostate. ??? A urine test to check for bacteria. ??? A semen sample or blood tests. ??? Ultrasound. ??? Urodynamic tests to check how your body handles urine. ??? Cystoscopy to look inside your bladder or inside the part of your body that drains urine from the bladder (urethra). How is this treated? Treatment for this condition depends on the type of prostatitis. Treatment may involve: ??? Medicines to relieve pain or inflammation, or to help relax your muscles. ??? Physical therapy. ??? Heat therapy. ??? Biofeedback. These techniques help you control certain body functions. ??? Relaxation exercises. ??? Antibiotic medicine, if your condition is caused by bacteria. ??? Sitz baths. These warm water baths help to relax your pelvic floor muscles, which helps to relieve pressure on the prostate. Follow these instructions at home: Medicines ??? Take hmue-jjz-zllhyew and prescription medicines only as told by your health care provider. ??? If you were prescribed an antibiotic medicine, take it as told by your health care provider. Do not stop using the antibiotic even if you start to feel better. Managing pain and swelling ??? Take sitz baths as directed by your health care provider. For a sitz bath, sit in warm water that is deep enough to cover your hips and buttocks. ??? If directed, apply heat to the affected area as often as told by your health care provider. Use the heat source that your health care provider recommends, such as a moist heat pack or a heating pad. ? Place a towel between your skin and the heat source. ? Leave the heat on for 20?30 minutes. ? Remove the heat if your skin turns bright red. This is especially important if you are unable to feel pain, heat, or cold. You may have a greater risk of getting burned. General instructions ??? Do exercises as told by your health care provider, if you were prescribed physical therapy, biofeedback, or relaxation exercises. ??? Keep all follow-up visits as told by your health care provider. This is important. (more content not included)... [facility] 09-07-2024 History of Present illness Narrative Skin Check Location: Patient requests a skin examination from the waist up Dermatologic history: no history of skin cancer, no history of atypical moles, no family history of melanoma New patient All pertinent medical history, medications, and allergies were reviewed. General Exam: alert, oriented to person, place, and time, normal affect, well appearing Unaccompanied Areas not examined despite medical recommendation: From the waist down Scalp, Examined , exam limited by hair Right leg Examined Head, Face Examined Left leg Examined Neck Examined Right foot Examined Chest Examined Left foot Examined Back Examined Buttocks Examined Abdomen Examined Digits,nails: Examined Right arm Examined Left arm Examined Lymphatics: Not examined Hands Examined 1. Other seborrheic dermatitis Head - Anterior (Face), Nose Erythema and scale. Flaring today Discussed that seborrheic dermatitis is a chronic condition that can be controlled but not cured. Notify office if flaring despite treatment. Patient declines treatment at this time. 2. Lentigines Scattered rodriguez macules in sun-exposed areas. The patient was informed that lentigines are benign pigmented lesions that occur on sun-exposed and sun-damaged skin. No treatment is necessary. Recommended regular use of broad spectrum sunscreen SPF 30 or higher 3. Seborrheic keratosis Stuck on verrucous, rodriguez-brown papules and plaques. Patient was counseled regarding these benign growths. Removal is normally not necessary, but they may be removed if they are symptomatic or for cosmetic reasons. Next Visit: 1 year documented in this encounter [facility] 08-02-2024 Hospital Discharge instructions Patient Education 08/02/2024 10:38:24 Prostatitis Prostatitis Prostatitis is swelling or inflammation of the prostate gland, also called the prostate. This gland is about 1.5 inches wide and 1 inch high, and it is involved in making semen. The prostate is located below a man's bladder, in front of the rectum. There are four types of prostatitis: Chronic prostatitis (CP), also called chronic pelvic pain syndrome (CPPS). This is the most common type of prostatitis. It is associated with increased muscle tone in the area between the hip bones (pelvic area), around the prostate. This type is also known as a pelvic floor disorder. Chronic bacterial prostatitis. This type usually results from an acute bacterial infection in the prostate gland that keeps coming back or has not been treated properly. The symptoms are less severe than those caused by acute bacterial prostatitis, which lasts a shorter time. Asymptomatic inflammatory prostatitis. This type does not have symptoms and does not need treatment. This is diagnosed when tests are done for other disorders of the urinary tract or reproductive tract. Acute bacterial prostatitis. This type starts quickly and results from an acute bacterial infection in the prostate gland. It is usually associated with a bladder infection, high fever, and chills. This is the least common type of prostatitis. What are the causes? Bacterial prostatitis is caused by an infection from bacteria. Chronic nonbacterial prostatitis may be caused by: Factors related to the nervous system. This system includes thebrain, spinal cord, and nerves. An autoimmune response. This happens when the body's disease-fighting system attacks healthy tissue in the body by mistake. Psychological factors. These have to do with how the mind works. The causes of the other types of prostatitis are usually not known. What are the signs or symptoms? Symptoms of this condition depend on the type of prostatitis you have. Acute bacterial prostatitis Symptoms may include: Pain or burning during urination. Frequent and sudden urges to urinate. Trouble starting to urinate. Fever. Chills. Pain in your muscles or joints, lower back, or lower abdomen. Other types of prostatitis Symptoms may include: Sudden urges to urinate, or urinating often. Trouble starting to urinate. Weak urine stream. Dribbling after urination. Discharge coming from the penis. Pain in the testicles, the penis, or the tip of the penis. Pain in the area in front of the rectum and below the scrotum (perineum). Pain when ejaculating. How is this diagnosed? This condition may be diagnosed based on: A physical and medical exam. A digital rectal exam. For this, the health care provider may use a finger to feel the prostate. A urine test to check for bacteria. A semen sample or blood tests. Ultrasound. Urodynamic tests to check how your body handles urine. Cystoscopy to look inside your bladder or inside the part of your body that drains urine from the bladder (urethra). How is this treated? Treatment for this condition depends on the type of prostatitis. Treatment may involve: Medicines to relieve pain or inflammation, or to help relax your muscles. Physical therapy. Heat therapy. Biofeedback. These techniques help you control certain body functions. Relaxation exercises. Antibiotic medicine, if your condition is caused by bacteria. Sitz baths. These warm water baths help to relax your pelvic floor muscles, which helps to relieve pressure on the prostate. Follow these instructions at home: Medicines Take kkge-ymq-swgqeem and prescription medicines only as told by your health care provider. If you were prescribed an antibiotic medicine, take it as told by your health care provider. Do not stop using the antibiotic even if you start to feel better. Managing pain and swelling Take sitz baths as directed by your health care provider. For a sitz bath, sit in warm water that is deep enough to cover your hips and buttocks. If directed, apply heat to the affected area as often as told by your health care provider. Use the heat source that your health care provider recommends, such as a moist heat pack or a heating pad. ?Place a towel between your skin and the heat source. ?Leave the heat on for 20 30 minutes. ?Remove the heat if your skin turns bright red. This is especially important if you are unable to feel pain, heat, or cold. You may have a greater risk of getting burned. General instructions Do exercises as told by your health care provider, if you were prescribed physical therapy, biofeedback, or relaxation exercises. Keep all follow-up visits as told by your health care provider. This is important. Where to find more information [employer]: https://www.niddk.nih.gov Contact a health care provider if: Your symptoms get worse. You have a fever. Get help right away if: You have chills. You feel light-headed or feel like you may faint. You cannot urinate. You have blood or blood clots in your urine. Summary Prostatitis is swelling or inflammation of the prostate gland. Treatment for this condition depends on the type of prostatitis. Take madm-ybz-sbdhsuu and prescription medicines only as told by your health care provider. Get help right away of you have chills, feel light-headed, feel like you may faint, cannot urinate, or have blood or blood clots in your urine. This information is not intended to replace advice given to you by your health care provider. Make sure you discuss any questions you have with your health care provider. Document Revised: 04/03/2023 Document Reviewed: 04/03/2023 Be Spotted Patient Education 2023 [employer]. 08/02/2024 10:38:20 Benign Prostatic Hyperplasia Benign Prostatic Hyperplasia Benign prostatic hyperplasia (BPH) is an enlarged prostate gland that is caused by the normal aging process. The prostate may get bigger as a man gets older. The condition is not caused by cancer. The prostate is a walnut-sized gland that is involved in the production of semen. It is located in front of the rectum and below the bladder. The bladder stores urine. The urethra carries stored urine out of the body. An enlarged prostate can press on the urethra. This can make it harder to pass urine. The buildup of urine in the bladder can cause infection. Back pressure and infection may progress to bladder damage and kidney (renal) failure. What are the causes? This condition is part of the normal aging process. However, not all men develop problems from this condition. If the prostate enlarges away from the urethra, urine flow will not be blocked. If it enlarges toward the urethra and compresses it, there will be problems passing urine. What increases the risk? This condition is more likely to develop in men older than 50 years. What are the signs or symptoms? Symptoms of this condition include: Getting up often during the night to urinate. Needing to urinate frequently during the day. Difficulty starting urine flow. Decrease in size and strength of your urine stream. Leaking (dribbling) after urinating. Inability to pass urine. This needs immediate treatment. Inability to completely empty your bladder. Pain when you pass urine. This is more common if there is also an infection. Urinary tract infection (UTI). How is this diagnosed? This condition is diagnosed based on your medical history, a physical exam, and your symptoms. Tests will also be done, such as: A post-void bladder scan. This measures any amount of urine that may remain in your bladder after you finish urinating. A digital rectal exam. In a rectal exam, your health care provider checks your prostate by putting a lubricated, gloved finger into your rectum to feel the back of your prostate gland. This exam detects the size of your gland and any abnormal lumps or growths. An exam of your urine (urinalysis). A prostate specific antigen (PSA) screening. This is a blood test used to screen for prostate cancer. An ultrasound. This test uses sound waves to electronically produce a picture of your prostate gland. Your health care provider may refer you to a specialist in kidney and prostate diseases (urologist). How is this treated? Once symptoms begin, your health care provider will monitor your condition (active surveillance or watchful waiting). Treatment for this condition will depend on the severity of your condition. Treatment may include: Observation and yearly exams. This may be the only treatment needed if your condition and symptoms are mild. Medicines to relieve your symptoms, including: ?Medicines to shrink the prostate. ?Medicines to relax the muscle of the prostate. Surgery in severe cases. Surgery may include: ?Prostatectomy. In this procedure, the prostate tissue is removed completely through an open incision or with a laparoscope or robotics. ?Transurethral resection of the prostate (TURP). In this procedure, a tool is inserted through the opening at the tip of the penis (urethra). It is used to cut away tissue of the inner core of the prostate. The pieces are removed through the same opening of the penis. This removes the blockage. ?Transurethral incision (TUIP). In this procedure, small cuts are made in the prostate. This lessens the prostate's pressure on the urethra. ?Transurethral microwave thermotherapy (TUMT). This procedure uses microwaves to create heat. The heat destroys and removes a small amount of prostate tissue. ?Transurethral needle ablation (TUNA). This procedure uses radio frequencies to destroy and remove a small amount of prostate tissue. ?Interstitial laser coagulation (ILC). This procedure uses a laser to destroy and remove a small amount of prostate tissue. ?Transurethral electrovaporization (TUVP). This procedure uses electrodes to destroy and remove a small amount of prostate tissue. ?Prostatic urethral lift. This procedure inserts an implant to push the lobes of the prostate away from the urethra. Follow these instructions at home: Take ouuy-aez-jpvfstm and prescription medicines only as told by your health care provider. Monitor your symptoms for any changes. Contact your health care provider with any changes. Avoid drinking large amounts of liquid before going to bed or out in public. Avoid or reduce how much caffeine or alcohol you drink. Give yourself time when you urinate. Keep all follow-up visits. This is important. Contact a health care provider if: You have unexplained back pain. Your symptoms do not get better with treatment. You develop side effects from the medicine you are taking. Your urine becomes very dark or has a bad smell. Your lower abdomen becomes distended and you have trouble passing urine. Get help right away if: You have a fever or chills. You suddenly cannot urinate. You feel light-headed or very dizzy, or you faint. There are large amounts of blood or clots in your urine. Your urinary problems become hard to manage. You develop moderate to severe low back or flank pain. The flank is the side of your body between the ribs and the hip. These symptoms may be an emergency. Get help right away. Call 911. Do not wait to see if the symptoms will go away. Do not drive yourself to the hospital. Summary Benign prostatic hyperplasia (BPH) is an enlarged prostate that is caused by the normal aging process. It is not caused by cancer. An enlarged prostate can press on the urethra. This can make it hard to pass urine. This condition is more likely to develop in men older than 50 years. Get help right away if you suddenly cannot urinate. This information is not intended to replace advice given to you by your health care provider. Make sure you discuss any questions you have with your health care provider. Document Revised: 12/05/2021 Document Reviewed: 12/05/2021 [employer] Spotted Patient Education 2023 [employer]. Follow Up Care 06/24/2024 14:39:24 With:GEN ADAM, Eren Chin, URL Address: [facility] [address] , [place] [phone] When: Unknown Comments:3 mos (new med) [facility] 08-02-2024 Note Patient Education Infectious Disease Prostatitis Prostatitis is swelling or inflammation of the prostate gland, also called the prostate. This gland is about 1.5 inches wide and 1 inch high, and it is involved in making semen. The prostate is located below a man's bladder, in front of the rectum. There are four types of prostatitis: ??? Chronic prostatitis (CP), also called chronic pelvic pain syndrome (CPPS). This is the most common type of prostatitis. It is associated with increased muscle tone in the area between the hip bones (pelvic area), around the prostate. This type is also known as a pelvic floor disorder. ??? Chronic bacterial prostatitis. This type usually results from an acute bacterial infection in the prostate gland that keeps coming back or has not been treated properly. The symptoms are less severe than those caused by acute bacterial prostatitis, which lasts a shorter time. ??? Asymptomatic inflammatory prostatitis. This type does not have symptoms and does not need treatment. This is diagnosed when tests are done for other disorders of the urinary tract or reproductive tract. ??? Acute bacterial prostatitis. This type starts quickly and results from an acute bacterial infection in the prostate gland. It is usually associated with a bladder infection, high fever, and chills. This is the least common type of prostatitis. What are the causes? Bacterial prostatitis is caused by an infection from bacteria. Chronic nonbacterial prostatitis may be caused by: ??? Factors related to the nervous system. This system includes thebrain, spinal cord, and nerves. ??? An autoimmune response. This happens when the body's disease-fighting system attacks healthy tissue in the body by mistake. ??? Psychological factors. These have to do with how the mind works. The causes of the other types of prostatitis are usually not known. What are the signs or symptoms? Symptoms of this condition depend on the type of prostatitis you have. Acute bacterial prostatitis Symptoms may include: ??? Pain or burning during urination. ??? Frequent and sudden urges to urinate. ??? Trouble starting to urinate. ??? Fever. ??? Chills. ??? Pain in your muscles or joints, lower back, or lower abdomen. Other types of prostatitis Symptoms may include: ??? Sudden urges to urinate, or urinating often. ??? Trouble starting to urinate. ??? Weak urine stream. ??? Dribbling after urination. ??? Discharge coming from the penis. ??? Pain in the testicles, the penis, or the tip of the penis. ??? Pain in the area in front of the rectum and below the scrotum (perineum). ??? Pain when ejaculating. How is this diagnosed? This condition may be diagnosed based on: ??? A physical and medical exam. ??? A digital rectal exam. For this, the health care provider may use a finger to feel the prostate. ??? A urine test to check for bacteria. ??? A semen sample or blood tests. ??? Ultrasound. ??? Urodynamic tests to check how your body handles urine. ??? Cystoscopy to look inside your bladder or inside the part of your body that drains urine from the bladder (urethra). How is this treated? Treatment for this condition depends on the type of prostatitis. Treatment may involve: ??? Medicines to relieve pain or inflammation, or to help relax your muscles. ??? Physical therapy. ??? Heat therapy. ??? Biofeedback. These techniques help you control certain body functions. ??? Relaxation exercises. ??? Antibiotic medicine, if your condition is caused by bacteria. ??? Sitz baths. These warm water baths help to relax your pelvic floor muscles, which helps to relieve pressure on the prostate. Follow these instructions at home: Medicines ??? Take wiaq-mcv-dgjrzlm and prescription medicines only as told by your health care provider. ??? If you were prescribed an antibiotic medicine, take it as told by your health care provider. Do not stop using the antibiotic even if you start to feel better. Managing pain and swelling ??? Take sitz baths as directed by your health care provider. For a sitz bath, sit in warm water that is deep enough to cover your hips and buttocks. ??? If directed, apply heat to the affected area as often as told by your health care provider. Use the heat source that your health care provider recommends, such as a moist heat pack or a heating pad. ? Place a towel between your skin and the heat source. ? Leave the heat on for 20?30 minutes. ? Remove the heat if your skin turns bright red. This is especially important if you are unable to feel pain, heat, or cold. You may have a greater risk of getting burned. General instructions ??? Do exercises as told by your health care provider, if you were prescribed physical therapy, biofeedback, or relaxation exercises. ??? Keep all follow-up visits as told by your health care provider. This is important. (more content not included)... [facility] 06-25-2023 Evaluation note Encounter Date Diagnosis Assessment Notes Jun, Gastroesophageal reflux disease with esophagitis without hemorrhage (ICD-10 - K21.00) [employer] Other 07-17-2023 Evaluation note* Encounter Date Diagnosis Assessment Notes Treatment Notes Treatment Clinical Notes Nov, Wellness examination (ICD-10 - Z00.00) Healthy diet and exercise. Reviewed age-appropriate preventive testing recommended. Nov, Primary hypertension (ICD-10 - I10) This patient is instructed to consume a healthy, low-fat, low-salt diet. They are also encouraged to continue exercise to achieve/maintain a normal BMI. Nov, Elevated cholesterol (ICD-10 - E78.00) Instructed on diet and exercise with continued statin therapy.Discussed the beneficial effects of lowering cholesterol in reducing the risk for cerebrovascular and cardiovascular disease. Nov, Gastroesophageal reflux disease with esophagitis without hemorrhage (ICD-10 - K21.00) Diet instructions: Smaller portions, avoid eating and laying flat, avoid eating or drinking prior to bedtime. Weight loss. Nov, Lumbar spondylosis (ICD-10 - M47.816) The patient is instructed to avoid bending, twisting or lifting. They are to use intermittent heat and ice as needed. They may schedule a massage or gentle manipulation. They may safely use Tylenol as needed. Nov, Screening PSA (prostate specific antigen) (ICD-10 - Z12.5) Nov, Erectile dysfunction due to arterial insufficiency (ICD-10 - N52.01) Reassured Discussed etiology Discussed possible side effects w/ medication Instructed to go to ER if develop CP, palpitations or lightheadedness Nov, Tinea versicolor (ICD-10 - B36.0) Reassured Reviewed etiology and treatment. Nov, Other obesity due to excess calories (ICD-10 - E66.09) This patient has been instructed on a low-fat, high-fiber diet. They are instructed to reduce calories, portion sizes and snacks. It is recommended that they exercise for 30 minutes, 3-5 times weekly. Nov, Body mass index [BMI ] 34.0-34.9, adult (ICD-10 - Z68.34) [employer] Other 01-24-2022 Evaluation note* Encounter Date Diagnosis Assessment Notes Treatment Notes Treatment Clinical Notes Jun, Cellulitis of left thumb (ICD-10 - L03.012) Discussed diagnosis with patient in detail. Instructed patient to take antibiotic as directed, complete entire course even if feeling better, take with food and plenty of water. Instructed close monitoring of wound, marked today in office. May continue Epsom salt soaks. Avoid picking at scab or scrubbing, clean by letting warm soapy water run over. May leave open to air. Follow up with PCP in the next 2-3 days. Immediate eval by ER if fever, chills, body aches, increase in swelling or redness, red streaking from wound, pain with ambulation, calf swelling, tenderness, redness warmth, SOB, difficulty breathing, chest pain, or any new or concerning symptoms. Patient verbalizes understanding and is agreeable to treatment plan [facility] [employer] Other Evaluation + Plan note Future Appointments Appointment Date:11/05/2024 09:45:00 AM Scheduled Provider:Eren SHOOK MD Location:[facility] Appointment Type:URO Office Visit [facility] evaluation + Plan note Future Appointments Appointment Date:02/28/2025 11:15:00 AM Scheduled Provider:Eren SHOOK MD Location:[facility] Appointment Type:URO Office Visit [facility] evaluation noteNo [facility] [employer] Other Evaluation note* Diagnosis Onset Date Resolution Status GERD (gastroesophageal reflux disease) acute Hypercholesterolemia acute Hypertension acute Lumbar spondylosis acute Obesity acute Right hip pain acute Wellness examination noneact [facility] Work Phone: Evaluation note* Diagnosis Other seborrheic dermatitis- Primary Lentigines Seborrheic keratosis [facility] Diagnosis Onset Date Resolution Status Admit Date BPPV (benign paroxysmal positional vertigo) acute January 26, 2025 1:19pm GERD (gastroesophageal reflu x disease) acute January 26 1:19pm Hypercholesterolemia acute 2024 1:19pm Hypertension acute January 26, 2025 1:19pm Lumbar spondylosis acute January 26, 2025 1:19pm Obesity acute January 26, 2 025 1:19pm Right hip pain acute December 1:19pm Screening PSA (prostate spec ific antigen) acute January 26 1:19pm Wellness examination noneactive 2024 1:19pm [facility] Work Phone: History general Narrative - Reported* Type Description Date Medical History Hypertension Medical History Esophageal reflux Medical History hypercholesterolemia Surgical History left wrist surgery Surgical History right knee surgery Surgical History testicular surgery for ruptured artery Hospitalization History see above [employer] Other Hospital course Narrative No data available for this section [facility] Hospital Discharge instructions No data available for this section [facility] Progress note No data available for this section [facility] reason for referral (narrative)No reason for referral [facility] Work Phone: Summary Purpose Family History Relationship Condition Age at Onset Recorded Date/T karen mother End-stage renal disease Unknown mother Coronary artery disease Unknown brother Unknown Malignant neoplasm Unknown family member Unknown mother Hypertension Unknown Diabetes mellitus Unknown Renal failure Unknown Unknown Heart disease Unknown sister Malignant neoplasm Unknown sister Malignant neoplasm of bone Unknown Hypertension Unknown Advance Directives Advance Directive Response Recorded Date/ Time Advance Directives No March 29, 2019 9:02am Chief Complaint and Reason for Visit Chief Complaint wellness Reason for Visit GERD (gastroesophage al reflux disease) Hypercholesterolemia Hypertension Lumbar spondylosis Obesity Right hip pain Wellness examination Chief Complaint Admit Date Wellness January 26, 2025 1: 19pm Reason for Visit Admit Date BPPV (benign paroxysmal positional verti go) January 26, 2025 1:19pm GERD (gastroesophageal reflux disease) A ugust 2024 1:19pm Hypercholesterolemia January 26, 2025 1 :19pm Hypertension January 26, 2025 1: 19pm Lumbar spondylosis January 26, 2025 1: 19pm Obesity January 26, 2025 1: 19pm Right hip pain January 26, 2025 1: 19pm Screening PSA (prostate specific antigen ) January 26, 2025 1:19pm Wellness examination January 26, 2025 1 :19pm Additional Source Comments REASON FOR VISIT (unrecogniz ed section and content) Reason Comments Skin Check (unrecognized sect ion and content) No Status Records FoundNo Status Records FoundNo Status Records Found INFORMATION SOURCE (unrecogn ized section and content) DATE CREATED AUTHOR 02/05/2022 [facility] DATE CREATED AUTHOR AUTHOR'S ORGANIZ ATION 09/09/2024 [facility] EPIC DATE CREATED AUTHOR AUTHOR'S ORGANIZ ATION 11/07/2024 Arya Rene [facility] Care Teams (unrecognized sec tion and content) Team Status: Active Member Role Status Dates Yaya Staley DO Primary Care Provider Active Team Status: Inactive Member Role Status Dates Yaya Staley DO Primary Care Provide r, Attending Provider Active Start: January 19, 2024 End: January 19, 2024 Team Status: Inactive Member Role Status Dates Yaya Staley DO Primary Care Provider Active Start: January 26, 2025 End: January 26, 2025 Yaya Staley DO Attending Provider Active Sta rt: January 26, 2025 End: January 26, 2025 Goals (unrecognized section and content) Goals may be documented in a n alternate section FOR RECORDS PERTAINING TO PATIENTS WHO ARE OR HAVE BEEN ENROLLED IN A CHEMICAL DEPENDENCY/SUBSTANCEABUSE PROGRAM, SOME INFORMATION MAY BE OMITTED. This clinical summary was aggregated from multiple sources. Caution should be exercised in using it in the provision of clinical care. This summary normalizes information from multiple sources, and as a consequence, information in this document may materially change the coding, format and clinical context of patient data. In addition, data may be omitted in some cases. CLINICAL DECISIONS SHOULD BE BASED ON THE PRIMARY CLINICAL RECORDS. [employer] [facility]. provides no warranty or guarantee of the accuracy or completeness of information in this document.
[2025-01-27 08:55] LABS: Hematocrit 44.9 % (42.0-54.0); Hemoglobin 15.7 g/dL (14.0-18.0); Immature Granulocytes Abs Auto 0.00 10^3/uL (0.00-0.03); Immature Granulocytes Pct Auto 0.0 % (0.0-0.5); Lymphocytes Absolute Auto 1.7 10^3/uL (1.2-3.8); Mean Corpuscular HGB Conc 35.0 g/dL (29.9-35.2); Mean Corpuscular Hemoglobin 32.0 pg (25.9-34.0); Mean Corpuscular Volume 91.6 fL (80.0-94.0); Platelet Count 252 10^3/uL (150-450); Red Blood Count 4.90 10^6/uL (4.70-6.10); White Blood Count 6.0 10^3/uL (4.0-11.0)
[2025-01-27 09:23] LABS: Alanine Aminotransferase 88 U/L (16-63); Albumin Globulin Ratio 1.1; Albumin Level 3.9 g/dL (3.4-5.0); Alkaline Phosphatase 94 U/L (46-116); Anion Gap 12.6; Aspartate Amino Transferase 32 U/L (15-37); Blood Urea Nitrogen 15.0 mg/dL (7.0-18.0); Calcium 9.0 mg/dL (8.5-10.1); Carbon Dioxide 27.0 mmol/L (21.0-32.0); Chloride 103 mmol/L (98-107); Cholesterol 194 mg/dL (<=200); Estimated GFR (African America >60 (>=60 mL/min/1.73m^2); Estimated GFR (Non-African Ame >60 (>=60 mL/min/1.73m^2); Globulin 3.4 g/dL; Glucose 113 mg/dL (74-106); HDL Cholesterol 34 mg/dL (40-60); Potassium 4.6 mmol/L (3.5-5.1); Sodium 138 mmol/L (136-145); Total Protein 7.3 g/dL (6.4-8.2); Triglycerides 96 mg/dL (<=150); VLDL CHOLESTEROL 19.2 mg/dL
== END 2025-01-27 08:32 | disposition home or self-care (01) ==
LOC: LAB 08:31
PROVIDERS: PCP Internal Medicine; Visit Provider Internal Medicine
DX: Z00.00 Encounter for general adult medical examination without abnormal findings (principal); Z12.5 Encounter for screening for malignant neoplasm of prostate
CPT/HCPCS: 36415; 80053; 80061; 85025; G0103

== ENCOUNTER 2025-04-26 10:24 | Outpatient (OUT) | payer BC, SELFPAY ==
--- OUTSIDE RECORDS SUMMARY | 2025-04-26 10:28 | XMS_ITS | Clinical Summary ---
Author Organization [facility] Address [address] [place] [address] Care Team Providers Care Inspector Floor Name Role Phone Unavailable Primary Care Provider Unavailabl e Allergies No known active allergies Medications MedicationSigDispense QuantityRefillsLast FilledStart DateEnd DateStatus omeprazole (PriLOSEC) [address] capsule TAKE 1 CAPSULE DAILY ON EMPTY STOMACH FOLLOWED IN 30 MINUTES BY BREAKFAST 5Active benazepril (Lotensin) 40 MG tablet Take 40 mg by mouth Daily5Active Active Problems No known active problems Social History Tobacco UseTypesPacks/DayYears UsedDateSmoking Tobacco: NeverSmokeless Tobacco: Never Tobacco Cessation:Counseling Given: Not Answered Sex and Gender InformationValueDate RecordedSex Assigned at BirthNot on file Legal JuxHjfz2808/14/2022 6:42 PM EDTGender IdentityNot on fileSexual Orientation Not on file Plan of Treatment DateTypeDepartmentCare Team (Latest Contact Info)Aomfsmpjysu64/09/2026 3:35 PM EDTOffice Visit [facility] [address] [facility] [address] [place] [id number] Isabel Parker MD [facility] [address] [facility] [address] [place] [address] Insurance
--- OUTSIDE RECORDS SUMMARY | 2025-04-26 10:28 | XMS_ITS | CCD ---
Author Organization [facility] Care Team Providers Care Greens Keeper Name Role Phone Demetria Nur Unavailable LUÍS, DR BURGOS Admitting Unavailable BALL, DR BURGOS Attending Unavailable BALL, DR BURGOS Primary Care Unavailable BALL, DR BURGOS Consulting Unavailable WEST, DR FLAVIO lKein Consulting Unavailable BALL, DR BURGOS Admitting Unavailable BALL, DR BURGOS Attending Unavailable BALL, DR BURGOS Primary Care Unavailable BALL, DR BURGOS Consulting Unavailable BALL, DR BURGOS Admitting Unavailable BALL, DR BURGOS Attending Unavailable BALL, DR BURGOS Referring Unavailable BALL, DR BURGOS Primary Care Unavailable BALL, DR BURGOS Consulting Unavailable WEST, DR FLAVIO Klein Consulting Unavailable Luís, Yaya Unavailable YAYA STALEY Primary Care Physician [phone] Unavailable Primary Care Provider UnavailISABEL Farrar Attending Unavailable Yaya Staley DO Primary Care Provider [phone] Yaya Staley DO Attending Provider Eren SHOOK Attending Unavailable SHOOK, Eren Chin Attending Unavailable SHOOK, Eren Chin Attending Unavailable SHOOK, Eren Chin Admitting Unavailable SHOOK, Eren Chin Attending Unavailable SHOOK, Eren Chin Attending Unavailable BALL, YAYA Hirsch Referring Unavailable LUÍS, YAYA Hirsch Primary Care Unavailable Allergies Allergy ClassificationReported Allergen(s)Allergy TypeDate of OnsetReaction(s) Facility (1 source)patient allergy list reviewed by nurse or physiciaPropensity to adverse frbxqhcib10-97-3478Socjawn:BRAND-YOURSELF Other (1 source)ALLERGIES NOT ON FILE; Translations: [ALLERGIES NOT ON FILE]Propensity to adverse reactions (disorder)[facility] Medications Current Medications MedicationDrug Class(es)DatesSig (Normalized)Sig (Original)24 hr alfuzosin hydrochloride 10 mg extended release oral tablet (5 sources)alpha-Adrenergic BlockerStart: 68-20-9021aogx 1 tablet by mouth once daily at mealtimeAlfuzosin 10 mg tablet extended release 24 hr Active 10 MG PO Daily January 26, 2025 12:00am administer after the same meal each day Complies with drug therapyStart: 36-12-7057pvoi 1 tablet by mouth once dailyalfuzosin 10 mg ER Tab 10 mg = 1 tab(s), Oral, Daily, # 30 tab(s), Refills(s) 11, Pharmacy: [facility]/pharmacy #[id number], 180, cm, 08/02/24 10:11:00 EST, Height/Length Dosing, 106, kg, 08/02/24 10:11:00 EST, Weight Dosing Start Date: 08/02/24 Status: Ordered Quantity: 30.0 Unit: tab(s) Repeat number: 12 Indication: Benign prostatic hyperplasia with lower urinary tract symptomsbenazepril hydrochloride 40 mg oral tablet (16 sources)Angiotensin Converting Enzyme InhibitorStart: 06-28-2024 End: 40-98-5514izah 1 tablet by mouth once dailyBenazepril 40 mg tablet Active 0 .ROUTE .COMPLEX 90 December 28, 2024 7:41am TAKE 1 TABLET BY MOUTH EVERY DAY Complies with drug therapyStart: 03-31-2019 End: 37-50-0026koqi 1 tablet by mouth once dailybenazepril (Lotensin) 40 MG tablet Take 40 mg by mouth Daily 06/28/2024 ActiveStart: 39-03-3115gtpw 1 tablet by mouth once dailybenazepril 20 mg Tab 20 mg = 1 tab(s), Oral, Daily, Refills(s) 0, High blood pressure Start Date: 04/01/14 Status: Ordered Repeat number: 1doxycycline hyclate 100 mg oral capsule (1 source)Tetracycline-class DrugStart: 08-02-2024 End: 21-30-9194tvpc 1 capsule by mouth twice dailydoxycycline hyclate 100 mg Cap 100 mg = 1 cap(s), Oral, BID, X 4 week(s), # 56 cap(s), Refills(s) 0, Pharmacy: [facility]/pharmacy #[id number], 180, cm, 08/02/24 10:11:00 EST, Height/Length Dosing, 106, kg, 08/02/24 10:11:00 EST, Weight Dosing Start Date: 08/02/24 Stop Date: 08/30/24 Status: Orderedomeprazole 20 mg delayed release oral capsule (17 sources)Proton Pump InhibitorStart: 99-46-3030etctbmdkvb (PriLOSEC) [address] capsule TAKE 1 CAPSULE DAILY ON EMPTY STOMACH FOLLOWED IN 30 MINUTESBY BREAKFAST 06/13/2024 ActiveStart: 04-12-2024 End: 10-52-3388Lvezvqbtgc 20 mg capsule,delayed release(DR/EC) Active 0 .ROUTE .COMPLEX 90 December 10, 2024 8:24am TAKE 1 CAPSULE DAILY ON EMPTY STOMACH FOLLOWED IN 30 MINUTES BY BREAKFAST Complies with drug therapyStart: 01-19-2024 End: 39-89-2543gtbp 1 capsule by mouth once daily at breakfastOmeprazole 20 mg capsule,delayed release(DR/EC) Discontinued 20 MG PO Daily January 19, 2024 12:00am April 12, 2024 1:59pm DAILY ON EMPTY STOMACH FOLLOWED IN 30 MINUTES BY BREAKFASTStart: 20-74-5805faff 1 capsule by mouth once dailyOmeprazole 20 mg Cap - DR 20 mg, Oral, Daily, Refills(s) 0, Control of stomach acid Start Date: 04/01/14 Status: Ordered Repeat number: 1Omeprazole 20 MG TAKE 1 CAPSULE BY MOUTH DAILY ON EMPTY STOMACH FOLLOWED IN 30 MINUTES BY BREAKFASTOrally Once a day for 90 days ActiveOmeprazole Not-Taking/PRNOmeprazole Not-TakingOmeprazole Activeselenium sulfide 25 mg/ml medicated shampoo (2 sources)Start: 24-74-5237Eebwtqsv Sulfide 2.5 % 1 application Externally daily x 1 week for 7 days Nov, ActiveStart: 71-19-6521Xfnlggtk Sulfide 2.5 % 1 application Externally daily x 1 week for 7 days Nov, Active sulfamethoxazole 400 mg / trimethoprim 80 mg oral tablet (2 sources)Dihydrofolate Reductase Inhibitor Antibacterial, Sulfonamide AntimicrobialStart: 20-14-7185iqhs 1 tablet by mouth once dailySulfamethoxazole- Trimethoprim 400-80 mg tablet Active 1 TAB PO Daily January 26, 2025 12:00am Complies with drug therapyStart: 11-05-2024 End: 68-95-8650Ytnwuuo D.S. 800 mg-160 mg Tab 1 tab(s), Oral, q12hr for 30 day(s), 60 tab(s), Refill(s) 1, Take with food, [facility]/pharmacy #[id number], 180, cm, 11/05/24 10:11:00 EDT, Height/Length Dosing, 101.7, kg, 11/05/24 10:11:00 EDT, Weight Dosing Start Date: 11/05/24 Stop Date: 01/04/25 Status: Ordered Quantity: 60.0 Unit: tab(s) Repeat number: 2 Completed/Discontinued Medications MedicationDrug Class(es)DatesSig (Normalized)Sig (Original)acetaminophen 325 mg / oxyCODONE hydrochloride 5 mg oral tablet (2 sources)Opioid AgonistStart: 03-31-2019 End: 75-93-9383ctzu 1 tablet by mouth every six hours as needed for pain Oxycodone-Acetaminophen 5-325 mg tablet Discontinued 1 TAB PO Q6H as needed for pain 20 March 31, 2019 January 19, 2024 2:01pmcefTRIAXone (3 sources)Cephalosporin AntibacterialStart: 63-23-3749Xuytrnal 500 mg Oct, 250 mgcephalexin 500 mg oral tablet (6 sources)Cephalosporin AntibacterialStart: 48-82-4068mrkj 1 tablet by mouth every twelve hoursCephalexin 500 MG 1 tablet Orally every 12 hrs for 10 day(s) Jun, Not-Taking/PRNStart: 03-31-2019 End: 67-37-2301jgvh 1 capsule by mouth every twelve hoursCephalexin 500 mg capsule Discontinued 500 MG PO Q12H March 31, 2019 12:00am January 19, 2024 2:00pmfluconazole 150 mg oral tablet (4 sources)Azole AntifungalStart: 01-19-2024 End: 22-62-2507acgz 2 tablets by mouth every weekFluconazole 150 mg tablet Discontinued 300 MG PO every week January 19, 2024 12:00am January 19, 2024 2:11pmStart: 01-19-2024 End: 05-97-6062xofj 300 mg by mouth every weekFluconazole Discontinued 300 MG PO every week January 19, 2024 12:00am January 19, 2024 2:11pmStart: 12-16-2022 take 2 tablets by mouth every weekFluconazole 150 MG 2 tablets Orally weekly for 14 days Nov, Activetadalafil 20 mg oral tablet (4 sources)Phosphodiesterase 5 InhibitorStart: 01-19-2024 End: 89-61-6028blom 1 tablet by mouth once daily as neededTadalafil (Pulm. Hypertension) 20 mg tablet Discontinued 20 MG PO Daily as needed January 182:00am January 19, 2024 2:11pmStart: 60-95-1411xdwe 1 tablet by mouth every twenty-four hoursTadalafil 20 MG 1 tablet as needed Orally Once a day for 30 days Nov, Active Problems Active Problems Problem ClassificationProblemDateDocumented DateEpisodic/ChronicAbdominal pain (15 sources)Right lower quadrant pain; Translations: [Right upper quadrant pain] Onset: 15-64-5773EnxclhwvBlnfe bronchitis (1 source)Acute bronchitis due to other specified organisms; Translations: [Acute bronchitis due to other specified organisms]EpisodicConditions associated with dizziness or vertigo (3 sources)Dizziness and giddiness; Translations: [Benign paroxysmal positional vertigo]Onset: 741837-89-4146RvnsmdvuTqbnsfmpp of lipid metabolism (16 sources)Hypercholesterolemia; Translations: [Pure hypercholesterolemia, unspecified]Onset: 56-80-9425KmyekipWduacbqsnw disorders (11 sources)Gastro-esophageal reflux disease with esophagitis; Translations: [Gastroesophageal reflux disease with esophagitis without hemorrhage]Onset: 588808-05-4897GzmrmvkWglbbmjjdr disorders (3 sources)Esophageal disorders; Translations: [Gastro-esophageal reflux disease with esophagitis, without bleeding]Essential hypertension (14 sources)Essential hypertension; Translations: [Essential (primary) hypertension]Onset: 41-14-5092BbyiisvKnhzulknz hypertension (1 source)Essential hypertension; Translations: [Essential hypertension, benign] Onset: 63-93-5242Gkjhjrxgfgm (4 sources)Prolapsed htenwskbbiq85-18-2128KfwmjeneJpzgfqpzukv of prostate (7 sources)Benign prostatic hypertrophy with outflow obstruction; Translations: [Benign prostatic hyperplasia with lower urinary tract symptoms]Onset: 41-01-7717RzdtiiqAutgqsxunycs conditions of male genital organs (7 sources)Chronic prostatitis; Translations: [Chronic prostatitis]Onset: 14-59-1338AwaaacyTelksgrcrzab conditions of male genital organs (2 sources)Epididymitis; Translations: [Epididymo-orchitis]Onset: 08-27-2018 EpisodicMycoses (1 source)Pityriasis versicolorEpisodicOther and unspecified benign neoplasm (1 source)Benign lipomatous neoplasm of skin and subcutaneous tissue of trunk; Translations: [Benign lipomatous neoplasm of skin and subcutaneous tissue of trunk]EpisodicOther and unspecified benign neoplasm (4 sources)Lipoma of skin and subcutaneous tissue (excluding face)07-16-2019 EpisodicOther and unspecified benign neoplasm (4 sources)Lipoma of ursld97-07-7988SaahckpxYfmuo diseases of kidney and ureters (4 sources)Duynznmabiarxs77-06-8619IqlvwzdsOtyyv diseases of veins and lymphatics (1 source)Scrotal varices; Translations: [Scrotal varices]EpisodicOther diseases of veins and lymphatics (4 sources)Ukjanltdpt65-52-3249KqpphdtdFeopo inflammatory condition of skin (2 sources)Seborrheic dermatitis; Translations: [Other seborrheic dermatitis] 37-19-2578PxrhpdxuZoeqg lower respiratory disease (4 sources)Cough; Translations: [Cough]EpisodicOther male genital disorders (2 sources)Erectile dysfunction co-occurrent and due to arterial insufficiency; Translations: [Erectile dysfunction due to arterial insufficiency]ChronicOther male genital disorders (1 source)Erectile dysfunction due to arterial insufficiencyChronicOther male genital disorders (4 sources)Cyst of obnzldypig42-04-6248VyxgapswMazef male genital disorders (1 source)Disorder of male genital organ; Translations: [Other specified disorders of the male genital organs]Onset: 36-54-9312JfoxduzvCwknc male genital disorders (2 sources)Disorder of spermatic rwjf08-74-3774FajmzeekWlcbt male genital disorders (2 sources)Pain in emcbdkju71-92-3533YtwbxxavKnsfw non-traumatic joint disorders (5 sources)Pain in right hip; Translations: [Pain in joint, pelvic region and thigh]Onset: 91-69-2115TgfbqtrpPjmts non-traumatic joint disorders (1 source)Pain in left hip; Translations: [PAIN IN LEFT HIP]Onset: 01-11-2022 EpisodicOther non-traumatic joint disorders (3 sources)Hip pain; Translations: [Pain in right hip]76-31-9007OnhveeqlTmajb nutritional; endocrine; and metabolic disorders (6 sources)Body mass index 30+ - obesity; Translations: [Body mass index (BMI) 34.0-34.9, adult]38-12-9013XeeerfxLbvyj nutritional; endocrine; and metabolic disorders (2 sources)Obesity caused by energy imbalance; Translations: [Other obesity due to excess calories]ChronicOther nutritional; endocrine; and metabolic disorders (2 sources)Other obesity due to excess calories; Translations: [Other obesity due to excess calories]Onset: 36-85-5599KfrbzigJiccx nutritional; endocrine; and metabolic disorders (1 source)Body mass index (BMI) 34.0-34.9, adultChronicOther nutritional; endocrine; and metabolic disorders (1 source)Other disorders of bilirubin metabolism; Translations: [Other disorders of bilirubin metabolism]Onset: 82-85-6725LjysnzfLxyaq nutritional; endocrine; and metabolic disorders (2 sources)Obesity, unspecified; Translations: [Obesity, unspecified]01-19-2024 ChronicOther nutritional; endocrine; and metabolic disorders (7 sources)Obesity; Translations: [Obesity, unspecified]17-79-2404LgfcinbOgnoc screening for suspected conditions (not mental disorders or infectious disease) (6 sources)Encounter for screening for malignant neoplasm of prostate; Translations: [Screening for malignant neoplasm done]Onset: 11-95-9292Wqvauadp Other skin disorders (4 sources)Nodule of subcutaneous tissue of abdominal dwxv66-54-8793Ihtwmybb Other skin disorders (2 sources)Lentiginosis; Translations: [Other melanin hyperpigmentation] 17-84-7754BdldoexgOypdf skin disorders (2 sources)Seborrheic keratosis; Translations: [Other seborrheic keratosis] 48-38-9501UjbppehiKssxlimhr and history of mental health and substance abuse codes (1 source)Encounter for screening for depression; Translations: [Encounter for screening for depression]EpisodicSpondylosis; intervertebral disc disorders; other back problems (9 sources)Spondylosis without myelopathy or radiculopathy, lumbar region; Translations: [Lumbar spondylosis]Onset: 63-71-0174AsnjioqXvvxbhrrsvq; intervertebral disc disorders; other back problems (2 sources)Sacrococcygeal disorders, not elsewhere classified; Translations: [SACROCOCCYGEAL DISORDERS NEC]Onset: 74-62-1270ZyfqvskxPtdncms and strains (5 sources)Strain of muscle(s) and tendon(s) of the rotator cuff of right shoulder, initial encounter; Translations: [Rupture of anterior cruciate ligament]Onset: 897641-43-2464YguqvexiNbaucnd on above:RIGHTUnclassified (1 source)Low back pain, unspecified; Translations: [Low back pain, unspecified] Unclassified (1 source)Unspecified viral infection, in conditions classified elsewhere and of unspecified site; Translations: [Unspecified viral infection, in conditions classified elsewhere and of unspecified site]Onset: 89-40-8205Yuasfofovsod (1 source)Chest pain, Other; Translations: [Chest pain, Other]Onset: 06-11-2017 Unclassified (1 source)Routine general medical examination at health care facility; Translations: [Routine general medicalexamination at health care facility]Onset: 34-07-7754Fcdilzguidit (1 source)Body mass index 31.0-31.9, adult; Translations: [Body mass index 31.0- 31.9, adult]Onset: 84-34-9652Wellgzhfqorz (1 source)Body mass index 30.0-30.9, adult; Translations: [Body mass index 30.0- 30.9, adult]Onset: 27-96-0801Thtsdsjpyuzy (1 source)Body mass index 32.0-32.9, adult; Translations: [Body mass index 32.0- 32.9, adult]Onset: 82-22-1080Xnrzwrgoxpwr (1 source)Bacterial infection, unspecified, in conditions classified elsewhere and of unspecified site; Translations: [Bacterial infection, unspecified, in conditions classified elsewhere and of unspecified site]Onset: 08-27-2018 Unclassified (1 source)Abdominal pain, other specified site; Translations: [Abdominal pain, other specified site]Onset: 24-24-1572Zjqekartgiyk (8 sources)Patient encounter jjpxeo47-73-4881 Past or Other Problems Problem ClassificationProblemDateDocumented DateEpisodic/ChronicNonspecific chest pain (1 source)Other chest pain; Translations: [Other chest pain]Onset: 08-08-2017 EpisodicOther diseases of veins and lymphatics (1 source)Scrotal varices; Translations: [Scrotal varices]Onset: 09-08-2018 EpisodicOther gastrointestinal disorders (1 source)Other specified symptoms and signs involving the digestive system and abdomen; Translations: [Oth symptoms and signs involving the dgstv sys and abdomen] Resolved: 89-32-2502UtyottsgXbhhg liver diseases (1 source)Fatty (change of) liver, not elsewhere classified; Translations: [Fatty (change of) liver, not elsewhere classified] Resolved: 25-22-8046JqjmrgcTposd male genital disorders (1 source)Left testicular pain; Translations: [Left testicular pain]Onset: 99-85-5015OrnqgxhhXtbe and subcutaneous tissue infections (1 source)Cellulitis of left fingerOnset: 06-25-2021 Resolved: 32-02-0158Huuycwum Results Test NameValueInterpretationReference RangeFacilityCT CARDIAC SCORING WO IV CONTRASTon 16-32-0867UT CARDIAC SCORING WO IV CONTRASTInterpreted By: Lexi Mcgarry, STUDY: CT CARDIAC SCORING WO IV CONTRAST; 04/01/2025 4:09 pm INDICATION: Signs/Symptoms:E78.00 , I10. COMPARISON: None. ACCESSION NUMBER(S): [id number] ORDERING CLINICIAN: YAYA STALEY TECHNIQUE: Using prospective ECG gating, CT scan of the coronary arteries was performed without intravenous contrast. Coronary calcium scoring was performed according to the method of Agatston. FINDINGS: The score and distribution of calcium in the coronary arteries is as follows: LM 0 LAD 1.29 LCx 0 RCA 0 Total 1.29 The visualized mid/lower ascending thoracic aorta measures 3.1 cm in diameter. The heart is normal in size. No pericardial effusion is present. No gross evidence of mediastinal or hilar lymphadenopathy or masses is identified. The visualized segments of the lungs are normally expanded. The visualized subdiaphragmatic structures appear intact. IMPRESSION: 1. Coronary artery calcium score of 1.29 *. *Coronary Artery Calcium Gated and Nongated Agatston score Score Risk 0 Very low 1-99 Mildly increased 100-299 Moderately increased >300 Moderate to severely increased Antonio rooney al. JCCT 2016 (http://dx.doi.org/10.1016/j.jcct.2016.11.003) MAC 10-Year CHD Risk with Coronary Artery Calcification can be calcuate using link below Https://[email or web address]-[email or web address]/[email or web address]/[email or web address].aspx Davi. JACC 2014 (http://dx.doi.org/10.1016/j.j acc.2015.08.035) MACRO: None. Signed by: Lexi Mcgarry 04/04/2025 1:03 PM Dictation workstation: [id number] Defiance Regional HospitalUrology Office/Clinic Noteon 40-71-2382Ulkqzdu Office/Clinic NoteUrology Office/Clinic Note Chief Complaint 3 month f/u HPI Staff Pt is a 54 year old male here for 3 month f/u Previous Dx: kidney stone on left side, bilateral groin pain, abdominal pain bilateral upper quadrant, left variocele PSA: 01/29/24- 1.54 managed by PCP 01/27/25 - 0.98 IPSS score of 12 today. Urgency more than half the time. Frequency about half the time. Nocturia x2. Intermittency less than half the time. Weak stream less than 1 in 5x. Pt states that on and off hewill have some pain in his back on the left side but nothing that he thinks is terrible. Denies anyvisible blood or dysuria at any time. History of Present Illness Tests reviewed: UA, KUB, PSA I have reviewed the previous health record information and history for this patient from Dr. Shook. I have reviewed and verified the staff [...] HPI. Physical Exam Vitals & Measurements T: 37 ???C(Temporal Artery) HR: 106(Peripheral) RR: 16 BP: 138/89 HT: 180 cm HT: 71 in WT: 106 kg WT: 233.69 lb BMI: 32.72 General Appearance: alert, no distress, well nourished, well developed adult. Assessment/Plan JAUN 18. 1. Groin pain (R10.30: Lower abdominal pain, unspecified) S/p L varicocelectomy 03/31/19 by DLS (due to pain). 08/02/24 - started doxycycline 100mg bid x1 month OV 11/05/24 - Has had ongoing sharp pain since procedure. Radiates from lower abdomen to scrotal area. Pain is not always persistent but has aching in groin often. Denies pain/discomfort with urination. No hx of kidney stones. Also reports he has flares after intercourse. [1] 11/05/24 - started Bactrim DS bid x 2 months (#60 with 1 refill) Resolved. Pain has calmed down with bactrim course. Educated pt that he must not have been voiding optimally which caused chronic prostate infection. Must stay on Alufzosin to help with urination/prevent infection. Follow up 1 yr or sooner if needed. Pt understands and agrees with plan. -Complete bactrim course, cont probiotic supplement while on bactrim. No more abx when done with this supply. 2. Chronic prostatitis (N41.1: Chronic prostatitis) See #1. -Cont Alfuzosin 3. BPH with urinary obstruction (N40.1: Benign prostatic hyperplasia with lower urinary tract symptoms) PSA (monitored by PCP): 01/29/24 - 1.54 11/05/24 - started Bactrim DS bid x 2 months (#60 with 1 refill) 01/27/25 - 0.98 No known family history of prostate CA. One of his brothers had pancreatic cancer, now . Sister initially diagnosed with throat cancer which developed into metastatic disease. She is now . [1] UA neg. IPSS 12 (11). Taking Alfuzosin 10 mg ER qd. Voids ~q2hr. Does voice urgency. -Cont PSA monitoring with PCP -Cont Alfuzosin Follow-up With When Contact Information GEN ADAM, Eren Chin, [facility] [address], [place] [address]- Additional Instructions: 1 yr (PSA from PCP if available?) Patient Education Benign Prostatic Hyperplasia I, Sonia Sanz, personally scribed for Dr. Shook on 02/28/2025 12:31:15. . Documentation recorded by the scribe, Sonia Sanz, accurately reflects the services(s) I performed and decisions made by me. Authenticated by Dr. Shook on 02/28/2025 12:34:53. Problem List/Past Medical History Ongoing Acid reflux [...] right knee arthroscopy with chondroplasty, medial and lateralfemoral condyle, anterior horn partial lateral meniscectomy, allograft anterior cruciate ligament reconstruction (04/12/2014), Esophagogastroduodenoscopy (03/02/2010), Arthroscopy of knee, Elbow fracture - closed, History of knee surgery, Tonsillectomy, WRIST EXPLORATION. Medications alfuzosin 10 mg ER Tab, 10 mg= 1 tab(s), Oral, Daily, 3 refills benazepril 20 mg Tab, 20 mg= 1 tab(s), O (more content not included)...[facility] HospitalComment on above:Result Comment: Electronically Signed By: Eren SHOOK MD\.br\Date and Time Signed: 02/28/25 12:34 EDT\.br\Electronically Co-Signed By: Sonia Sanz\.br\Date and Time Co- Signed: 02/28/25 12:31 EDTAmbulatory Visit Summaryon 39-45-4279Mtzujsqmen Visit SummaryAmbulatory Visit Summary COLEMAN STEELE IV :1970 Visit [...] right knee arthroscopy with chondroplasty, medial and lateralfemoral condyle, anterior horn partial lateral meniscectomy, allograft [...] the Following Appointments Follow Up with GEN DAAM, Eren Chin, URMary When: Where: [address] [place] [address]- Medications What How Much When Why Instructions New sulfamethoxazole-trimethoprim (Bactrim D.S. 800 mg-160 mg Tab) 1 Tablets By Mouth Every 12 hours Duration: 30 Days Refills: 1 Take with food Pickup at [facility]/pharmacy #[id number] Unchanged alfuzosin (alfuzosin 10 mg ER Tab) 1 Tablets By Mouth Every day BPH with urinary obstruction Pickup at [facility]/pharmacy #[id number] Unchanged benazepril (benazepril 20 mg Tab) 1 Tablets By Mouth Every day Contact prescribing physician if questions or concerns Unchanged omeprazole (Omeprazole 20 mg Cap - DR) 20 Milligram By Mouth Every day Contact prescribing physician if questions or concerns Pharmacy Information [facility]/pharmacy #[id number]: [address] [place], [place] [phone] Allergies No Known Allergies Problems Ongoing - [...] prostate gland, also called the prostate. This glandis about 1.5 inches wide and 1 inch [...] quickly and results from an acute bacterial infectionin the prostate gland. It is usually associated [...] when the body's disease-fighting system attacks healthy tissuein the body by mistake. ??? Psychological factors. These have to do with how the mind works. The causes of the other types of prostatitis are usually not known. What are the signs or symptoms? Symptoms of this condition depend on the type o (more content not included)... [facility]Amb[facility] SummaryAmb[facility] Visit Summary COLEMAN STEELE IV :1970 Visit Date:11/05/2024 Ambulatory Visit Instructions Your Diagnosis BPH with urinary obstruction Groin pain Chronic prostatitis Spermatic cord pain Your Care Team Attending Physician - Eren SHOOK MD Primary Care Physician - YAYA STALEY DO This Is Your Medications List alfuzosin (alfuzosin 10 mg ER Tab) sulfamethoxazole-trimethoprim (Bactrim D.S. 800 mg-160 mg Tab) Contact prescribing physician if questions or concerns benazepril (benazepril 20 mg Tab) omeprazole (Omeprazole 20 mg Cap - DR) Procedures Performed Scrotal varicocelectomy (03/31/2019), right knee arthroscopy with chondroplasty, medial and lateralfemoral condyle, anterior horn partial lateral meniscectomy, allograft [...] GEN ADAM, Eren Chin, ALYSHA When: Where: [address] [place] [address]- Medications What How Much When Why Instructions New sulfamethoxazole-trimethoprim (Bactrim D.S. 800 mg-160 mg Tab) 1 Tablets By Mouth Every 12 hours Duration: 30 Days Refills: 1 Take with food Pickup at [facility]/pharmacy #[id number] Unchanged alfuzosin (alfuzosin 10 mg ER Tab) 1 Tablets By Mouth Every day BPH with urinary obstruction Pickup at [facility]/pharmacy #[id number] Unchanged benazepril (benazepril 20 mg Tab) 1 Tablets By Mouth Every day Contact prescribing physician if questions or concerns Unchanged omeprazole (Omeprazole 20 mg Cap - DR) 20 Milligram By Mouth Every day Contact prescribing physician if questions or concerns Pharmacy Information [facility]/pharmacy #[id number]: [address] [place], [place] [phone] Allergies No Known Allergies Problems Ongoing - [...] prostate gland, also called the prostate. This glandis about 1.5 inches wide and 1 inch [...] quickly and results from an acute bacterial infectionin the prostate gland. It is usually associated [...] when the body's disease-fighting system attacks healthy tissuein the body by mistake. ??? Psychological factors. These have to do with how the mind works. The causes of the other types of prostatitis are usually not known. What are the signs or symptoms? Symptoms of this condition depend on the type o (more content not included)... [facility]/Clinic Noteon 21-04-2228Zgzmxvm Office/Clinic NoteUrology Office/Clinic Note Chief Complaint 3 myh w/ [...] mass. Assessment/Plan Prior DLS pt KUB 10/14/24 [facility] - no obvious stones. 1. BPH with [...] Did not notice much of a difference afterhe completed ATB course. Still c/o prostate tenderness [...] and 3 Follow-up With When Contact Information SHOOK MD, Eren R, URL [address] [place] [address]- Additional Instructions: 3 mos Patient Education Prostatitis I, Tanja Jones, personally scribed for Dr. Shook on 11/05/2024 11:05:31. Electronically signedby jordon Jones on 11/05/2024 11:05:31. Documentation recorded by the scribe, Tanja Jones, [...] right knee arthroscopy with chondroplasty, medial and lateralfemoral condyle, anterior horn partial lateral meniscectomy, allograft anterior cruciate ligame (more content not included)...[facility] HospitalComment on above:Result Comment: Electronically Signed By: Eren SHOOK MD\.br\Date and Time Signed: 11/05/24 11:07 EDT\.br\Electronically Co-Signed By: Tanja Jones\.br\Date and Time Co- Signed: 11/05/2510:05 EDTXR Abdomen 1 Viewon [id number] Abdomen 1 ViewExam Date/Time: 10/14/2024 11:12 EDT Reason for Exam: [...] Edinson Alfonso DO Transcribed by: THERESA Technologist: Lilli[facility] Brandenburg CenterUrology Office/Clinic Noteon 27-77-6818[place] Office/Clinic NoteUrology Office/Clinic Note Chief Complaint New patient lower [...] can be caused by poor urination. Recommended startingprostate medication to help improved emptying. Possible SEs discussed. Pt wishes to try this. -Start Alfuzosin ER 10 mg qd. Rx sent to [facility]. 2. Groin pain (R10.30: Lower abdominal pain, unspecified) S/p L varicocelectomy 03/31/19 by HENRY. Has had ongoing sharp pain since procedure. [...] 100mg bid x1 month. Rx sent to [facility] [place]. -Start Alfuzosin ER 10 mg qd per #1 -Obtain KUB to r/o stones 3. Chronic prostatitis (N41.1: Chronic prostatitis) See #2. 4. Screening PSA (prostate specific antigen) (Z12.5: Encounter for screening for malignant neoplasmof prostate) Most recent PSA 01/29/24 - 1.54. Monitored by PCP. No fam hx of prostate ca. -Cont PSA monitoring w/ PCP Follow-up With When Contact Information Eren SHOOK MD, URL [facility] [address], [place] [phone] Additional Instructions: 3 mos (new med) Patient Education Prostatitis Benign Prostatic Hyperplasia I, Kim Collazo, personally scribed for Dr. Shook on 08/02/2024 10:43:48. . Documentation recorded by the scribe, Kim Collazo, accurately reflects the services(s) I performed and decisions made by me. Authenticated by Dr. Carlin (more content not included)...[facility] HospitalComment on above:Result Comment: Electronically Signed By: Eren SHOOK MD\.br\Date and Time Signed: 08/02/24 10:46 EST\.br\Electronically Co-Signed By: Kim Collazo\.br\Date and Time Co-Signed: 08/02/24 10:44 ESTCT ABD/PELV WO W CONon [id number] ABD/PELV WO W CONEXAMINATION: CT ABD/PELV WO W CON, 02/02/2022 8:35 [...] Electronically authenticated by: FLAVIO SHIELDS Date: 2022-02-05 07:32NoSub[facility] & Brentwood HospitalXR HIPS MELI 5V W PELVISon [id number] HIPS MELI 5V W PELVIS EXAMINATION: XR [...] Electronically authenticated by: FLAVIO SHIELDS Date: 2022-01-10 16:53[facility] HospitalXR LSPINE 2_3 VIEWSon [id number] LSPINE 2_3 VIEWSEXAMINATION: XR LSPINE 2_3 VIEWS HISTORY: Disorder of sacrum COMPARISON: No relevant comparison available. FINDINGS: BONES: Normal alignment with no acute fracture or spondylolisthesis. Mild degenerative spondylosis and facet osteoarthropathy DISC SPACES: Mild disc space narrowing L4-S1 PARASPINOUS: Negative. No paraspinous abnormality is seen. OTHER: Mild vascular calcifications IMPRESSION: Mild degenerative changes Electronically authenticated by: FLAVIO SHIELDS Date: 2022-01-10 16:54[facility] HospitalCB AUTO DIFFon [id number] #0.1 103/ulNormal0.0-0.1Prem[facility] Atrium Medical CenterComment on above:Performed By: #### CBC #### [facility] [address] [place] [address] Dr. Maximus FernandezBasophils/100 WBC (Bld)0.6 %Normal0.2-2.0The [facility] Comment on above:Performed By: #### CBC #### [facility] [address] [place] [address] Dr. Maximus Bradley #0.1 103/ulNormal0.0-0.7The [facility] HealthComment on above: Performed By: #### CBC #### [facility] [address] [place] [address] Dr. Maximus Blankosinophils/100 WBC (Bld)1.3 %Normal0.9-7.0The [facility] Comment on above:Performed By: #### CBC #### [facility] [address] [place] [address] Dr. Maximus Blankrythrocyte distribution width (RBC) [Ratio]11.9 %Iyrnnc78.0-15.0 The [facility] HealthComment on above:Performed By: #### CBC #### [facility] [address] [place] [address] Dr. Maximus FernandezHematocrit (Bld) [Volume fraction]44.6 %Girpwa39.0-54.0The [facility] HealthComment on above:Performed By: #### CBC #### [facility] [address] [place] [address] Dr. Maximus FernandezHemoglobin (Bld) [Mass/Vol]15.5 g/pLDaxnzx63.0-18.0The [facility] HealthComment on above:Performed By: #### CBC #### [facility] [address] [place] [address] Dr. Maximus Banerjee #0.03 10e3/ulNormal0.00-0.03The [facility] HealthComment on above:Performed By: #### CBC #### [facility] [address] [place] [address] Dr. Maximus Banerjee %0.4 %Normal0.0-0.5The [facility] HealthComment on above: Performed By: #### CBC #### [facility] [address] [place] [address] Dr. Maximus Lackey #2.1 103/ulNormal1.2-3.8The [facility] HealthComment on above:Performed By: #### CBC #### [facility] [address] [place] [address] Dr. Maximus Tierneyhocytes/100 WBC (Bld)26.8 %Focvnr51.5-60.0The [facility] HealthComment on above:Performed By: #### CBC #### [facility] [address] [place] [address] Dr. Maximus Meza DIFF REQNONormalThe [facility] HealthComment on above: Performed By: #### CBC #### [facility] [address] [place] [address] Dr. Maximus Vargas (RBC) [Entitic mass]32.0 szNkaysw72.9-34.0The [facility] HealthComment on above:Performed By: #### CBC #### [facility] [address] [place] [address] Dr. Maximus Loja (RBC) [Mass/Vol]34.8 g/wAUxwnth11.9-35.2The [facility] HealthComment on above:Performed By: #### CBC #### [facility] [address] [place] [address] Dr. Maximus Loja (RBC) [Entitic vol]92.0 oLDtytjd38.0-94.0The [facility] HealthComment on above:Performed By: #### CBC #### [facility] [address] [place] [address] Dr. Maximus Barboza #0.8 103/ulNormal0.3-0.8The [facility] HealthComment on above:Performed By: #### CBC #### [facility] [address] [place] [address] Dr. Maximus Mckeonocytes/100 WBC (Bld)9.9 %Normal1.7-12.0The [facility] Comment on above:Performed By: #### CBC #### [facility] [address] [place] [address] Dr. Maximus UriasUT #4.8 103/ulNormal1.4-6.5The [facility] HealthComment on above:Performed By: #### CBC #### [facility] [address] [address] [address] Maximus Uriasutrophils/100 WBC (Bld)61.0 %Jleras58.0-75.0The [facility] HealthComment on above:Performed By: #### CBC #### [facility] [address] [address] [address] Maximus FernandezPlatelet mean volume (Bld) [Entitic vol]9.2 fLCritically low 9.5-13.5The [facility] HealthComment on above:Performed By: #### CBC #### [facility] [address] [place] [address] Dr. Maximus FernandezPLT276 103/pqIbdjkk407-941Sve [facility] HealthCommclaren flint on above: Performed By: #### CBC #### [facility] [address] [place] [address] Dr. Maximus FernandezRBC4.85 106/ulNormal4.70-6.10The [facility] HealthCommclaren flint on above:Performed By: #### CBC #### [facility] [address] [place] [address] Dr. Maximus FernandezWBC7.8 103/ulNormal4.0-11.0The [facility] on above: Performed By: #### CBC #### [facility] [address] [place] [address] Dr. Maximus FernandezLIPID PROFILEon 73-00-1351GSMT-HDL RATIO NORMSFostoria City HospitalCommclaren flint on above:Result Comment: 3.3 - 4.4 LOW RISK 4.4 - 7.1 AVERAGE RISK 7.1 - 11.0 MODERATE RISK >11.0 HIGH RISKPerformed By: #### LIPID, CMP #### [facility] [address] [place] [address] Dr. Maximus FernandezCholesterol [Mass/Vol]208 mg/dLCritically high<=200The [facility] HealthComment on above:Performed By: #### LIPID, CMP #### [facility] [address] [address] [address] Maximus FernandezCholesterol in HDL [Mass/Vol]35 mg/dLOhioHealth [facility] Hospital Comment on above:Performed By: #### LIPID, CMP #### [facility] [address] [address] [address] Maximus FernandezCholesterol in LDL [Mass/Vol]151.4 mg/dLOhioHealth Marion General HospitalComment on above:Performed By: #### LIPID, CMP #### [facility] [address] [address] [address] Maximus Torresesterxin.total/Cholesterol in HDL [Mass ratio]5.9 {ratio} NormalPremier Health Atrium Medical CenterComment on above:Performed By: #### LIPID, CMP #### [facility] [address] [address] [address] Maximus London NORMAL> or = 60 mg/dl - LOW CARDIOVASCULAR RISK <40 mg/dl - HIGH CARDIOVASCULAR RISKOhioHealth Marion General HospitalComment on above:Performed By: #### LIPID, CMP #### [facility] [address] [address] [address] Maximus Tucker CALC NORMALSEE BELOWOhioHealth Marion General HospitalComment on above:Result Comment: <100 mg/dl OPTIMAL 100 - 129 mg/dl NEAR OR ABOVE OPTIMAL 130 - 159 mg/dl BORDERLINE HIGH 160 - 189 mg/dl HIGH >190 mg/dl VERY HIGH Performed By: #### LIPID, CMP #### [facility] [address] [address] [address] Maximus FernandezTriglyceride [Mass/Vol]108 mg/dLNormal<=150[facility] Comment on above:Performed By: #### LIPID, CMP #### [facility] [address] [address] [address] Maximus Rodriguez CALC21.6 mg/dLNoSuburban Community Hospital & Brentwood HospitalComment on above: Performed By: #### LIPID, CMP #### [facility] [address] [address] [address] Maximus MossF 14(COMP METB)on 85-89-8259Yqghakg [Mass/Vol]4.2 g/dLNormal 3.5-5.0The [facility] HealthComment on above:Performed By: #### LIPID, CMP #### [facility] [address] [address] [address] Maximus FernandezAlbumin/Globulin [Mass ratio]1.2 {ratio}NormalThe [facility] HealthComment on above:Performed By: #### LIPID, CMP #### [facility] [address] [address] [address] Maximus JohnsonP [Catalytic activity/Vol]100 U/WQmdebu27-083Mpg [facility] HealthComment on above:Performed By: #### LIPID, CMP #### [facility] [address] [address] [address] Maximus JohnsonT [Catalytic activity/Vol]60 U/DRtmwwi46-94Hhj [facility] HealthComment on above:Performed By: #### LIPID, CMP #### [facility] [address] [address] [address] Maximus Cr gap [Moles/Vol]8.9 mmol/LNormalThe [facility] HealthComment on above:Performed By: #### LIPID, CMP #### [facility] [address] [address] [address] Maximus FernandezAST [Catalytic activity/Vol]26 U/PBnhial42-38Oem [facility] HealthComment on above:Performed By: #### LIPID, CMP #### [facility] [address] [address] [address] Maximus FernandezBilirubin [Mass/Vol]1.2 mg/dLNormal0.2-1.3The [facility] Comment on above:Performed By: #### LIPID, CMP #### [facility] [address] [address] [address] Maximus FernandezCalcium [Mass/Vol]8.8 mg/dLNormal8.4-10.2The [facility] Comment on above:Performed By: #### LIPID, CMP #### [facility] [address] [address] [address] Maximus FernandezChloride [Moles/Vol]102 mmol/MCnvoff27-859Wyl [facility] Comment on above:Performed By: #### LIPID, CMP #### [facility] [address] [address] [address] Maximus FernandezCO2 [Moles/Vol]29.4 mmol/KHxnphn03.0-30.0The [facility] Comment on above:Performed By: #### LIPID, CMP #### [facility] [address] [address] [address] Maximus FernandezCreatinine [Mass/Vol]1.10 mg/dLNormal0.66-1.25The [facility] HealthComment on above:Performed By: #### LIPID, CMP #### [facility] [address] [address] [address] Maximus BlankGFR-AF SOUTH AFRICAN>60Normal>=60The [facility] HealthComment on above:Performed By: #### LIPID, CMP #### [facility] [address] [address] [address] Maximus BlankGFR-NON AF SOUTH AFRICAN>60Normal>=60The [facility] HealthComment on above:Performed By: #### LIPID, CMP #### [facility] [address] [address] [address] Maximus FernandezGlobulin (S) [Mass/Vol]3.4 g/dLNormalThe [facility] HealthComment on above:Performed By: #### LIPID, CMP #### [facility] [address] [address] [address] Maximus FernandezGlucose [Mass/Vol]98 mg/cCKvwrqz71-882DfyPremier Health Atrium Medical Center Comment on above:Performed By: #### LIPID, CMP #### [facility] [address] [address] [address] Maximus FernandezPotassium [Moles/Vol]4.3 mmol/LNormal3.4-5.0The [facility] Comment on above:Performed By: #### LIPID, CMP #### [facility] [address] [address] [address] Maximus FernandezProtein [Mass/Vol]7.6 g/dLNormal6.1-8.2The [facility] Comment on above:Performed By: #### LIPID, CMP #### [facility] [address] [place] [address] Dr. Maximus Danieldium [Moles/Vol]136 mmol/LCritically xfk464-777Ejp [facility] HealthComment on above:Performed By: #### LIPID, CMP #### [facility] [address] [place] [address] Dr. Maximus FernandezUrea nitrogen [Mass/Vol]17.0 mg/dLNormal9.0-20.0The [facility] HealthComment on above:Performed By: #### LIPID, CMP #### [facility] [address] [place] [address] Dr. Maximus Zavala nitrogen/Creatinine [Mass ratio]15.5 mg/mgNormalThe [facility] HealthComment on above:Performed By: #### LIPID, CMP #### [facility] [address] [place] [address] Dr. Maximus Blank RANDOM W/MICROSCOPICon 48-98-7097PEUYOQSOVTLT SEENNormalNONE SEENThe [facility] HealthComment on above:Performed By: #### UAMIC #### [facility] [address] [place] [address] Dr. Maximus FernandezBilirubin Ql (U)NegativeNormalNEGATIVEThe [facility] Comment on above:Performed By: #### UAMIC #### [facility] [address] [place] [address] Dr. Maximus FernandezCASTNONE SEENNormalNONE SEENPremier Health Atrium Medical CenterComment on above:Performed By: #### UAMIC #### [facility] [address] [place] [address] Dr. Maximus FernandezClarity (U)CLEARNormalCLEARThe [facility] HealthComment on above: Performed By: #### UAMIC #### [facility] [address] [address] [address] Maximus Meredithlor (U)YELLOWNormalYELLOWPremier Health Atrium Medical CenterComment on above: Performed By: #### UAMIC #### [facility] [address] [address] [address] Maximus FernandezCrystals LM Nom (Urine sed)NONE SEENNormalNONE SEENPremier Health Atrium Medical CenterComment on above:Performed By: #### UAMIC #### [facility] [address] [address] [address] Stroud ChangEpithelial cells LM Ql (Urine sed)FEWAbnormalNONE SEEN /RAREPremier Health Atrium Medical CenterCommclaren flint on above:Performed By: #### UAMIC #### [facility] [address] [address] [address] Maximus FernandezGlucose Ql (U)NegativeNormalNEGATIVEPremier Health Atrium Medical CenterComment on above:Performed By: #### UAMIC #### [facility] [address] [address] [address] Maximus FernandezHemoglobin Ql (U)NegativeNormalNEGATIVELima City Hospital on above:Performed By: #### UAMIC #### [facility] [address] [address] [address] Maximus FernandezKetones Ql (U)NegativeNormalNEGATIVEPremier Health Atrium Medical CenterComment on above:Performed By: #### UAMIC #### [facility] [address] [address] [address] Maximus FernandezLEUKOCYTESNegativeNormalNEGATIVEPremier Health Atrium Medical CenterComment on above:Performed By: #### UAMIC #### [facility] [address] [address] [address] Maximus FernandezMUCOUSLARGEAbnormalNONE SEENPremier Health Atrium Medical CenterComment on above:Performed By: #### UAMIC #### [facility] [address] [address] [address] Maximus FernandezNitrite Ql (U)NegativeNormalNEGATIVEPremier Health Atrium Medical CenterComment on above:Performed By: #### UAMIC #### [facility] [address] [address] [address] Maximus FernandezpH (U)6.0 [pH]Normal5-9The [facility] HealthComment on above: Performed By: #### UAMIC #### [facility] [address] [address] [address] Maximus FernandezRBCNONE SEENAbnormal0-2The [facility] HealthComment on above: Performed By: #### UAMIC #### [facility] [address] [address] [address] Maximus FernandezSPEC GRAVITY1.054Yqtqul9.005-<=1.025The [facility] HealthComment on above:Performed By: #### UAMIC #### [facility] [address] [place] [address] Dr. Maximus FernandezUA PROTEINNegativeNormalNEGATIVE/ TRACEThe [facility] Comment on above:Performed By: #### UAMIC #### [facility] [address] [address] [address] Maximus Rodriguezbilinogen Qn (U)0.2 {Mihaela'U}/dLNormal0.2 - 1.0The [facility] HealthComment on above:Performed By: #### UAMIC #### [facility] [address] [place] [address] Dr. Maximus FernandezWBCNONE SEENNormalNONE SEENThe [facility] HealthComment on above: Performed By: #### UAMIC #### [facility] [address] [address] [address] Maximus Fernandez Vital Signs Date TimeVital SignValuePerforming GuwjchzjdNusjunwh39-51-5991 13:34-0400Body .34 cmBenjamin Ball DO Work Phone: [facility]08-27-2025 13:34-0400 Body mass index (BMI) [Ratio]32.1 kg/v9Jrqmnvrl Ball DO Work Phone: [facility]08-27-2025 13:34-0400 Body yajfmt629.49 kgBenjamin Ball DO Work Phone: [facility]08-27-2025 13:34-0400 Diastolic blood ctirykic57 mm[Hg]Yaya Ball DO Work Phone: [facility]08-27-2025 13:34-0400 Heart rate81 /minBenjamin Ball DO Work Phone: [facility]08-27-2025 13:34-0400 Respiratory rate12 /minBenjamin Ball DO Work Phone: [facility]08-27-2025 13:34-0400 Systolic blood htjpsopp205 mm[Hg]Yaya Ball DO Work Phone: [facility]03-03-2025 10:05-0500 Body xnuagqhxcok58.24 [degF]Eren SHOOK [facility]03-03-2025 10:05-0500Diastolic blood owtgbtsq89 mm[Hg]Eren SHOOK [facility]03-03-2025 10:05-0500Heart rate85 /minPatrick SHOOK [facility]03-03-2025 10:05-0500Respiratory rate16 /minPatrick SHOOK [facility]03-03-2025 10:05-0500Systolic blood lbviauij971 mm[Hg]Eren SHOOK [facility]08-19-2024 14:11-0400Body uhvmri514.34 cmMart[facility]erry [facility]08-19-2024 14:11-0400Body mass index (BMI) [Ratio]31.8 kg/o2Fxrxmttzd[address] [place] [address]-19-2024 14:11-0400Body srujnd589.47 kgMartins Ferry Hospital08-19-2024 14:11-0400Diastolic blood mhrpavrk86 mm[Hg] [facility]08-19-2024 14:11-0400Heart rate81 /minMartins Ferry Hospital08-19-2024 14:11-0400Respiratory rate12 /[facility]08-19-2024 14:11-0400Systolic blood ddudduml456 mm[Hg] [facility]07-17-2023 10:30-0400Body qbbcai750.9 cm Yaya Ball Other [employer] Other 07-17-2023 10:30-0400Body mass index (BMI) [Ratio] 34.33 kg/h4Uymeqsgs Ball Other [employer] Other 07-17-2023 10:30-0400Body xfjsei833.23 kgBenjamin Ball Other [employer] Other 07-17-2023 10:30-0400Diastolic blood dfirrtsb70 mm[Hg] Yaya Ball Other [employer] Other 07-17-2023 10:30-0400Respiratory rate16 /minBenjamin Ball Other [employer] Other 07-17-2023 10:30-0400Systolic blood okwdyavd296 mm[Hg] Yaya Ball Other [employer] Other 01-24-2022 10:00-0500Body bypqgi958.9 cmAalma Nur Other [employer] Other 01-24-2022 10:00-0500Body mass index (BMI) [Ratio] 33.28 kg/p9Fmula Ginty Other [employer] Other 01-24-2022 10:00-0500Body gutnoupmnlz68.1 [degF]Demetria Ginty Other [employer] Other 01-24-2022 10:00-0500Body .97 kgAmber Ginty Other [employer] Other 01-24-2022 10:00-0500Diastolic blood wrhefrsj93 mm[Hg] Demetria Ginty Other [employer] Other 01-24-2022 10:00-0500Respiratory rate18 /minAmber Ginty Other [employer] Other 01-24-2022 10:00-1249XxL9% (BldA) [Mass fraction]99 % Demetria Ginty Other [employer] Other 01-24-2022 10:00-0500Systolic blood usfmjizz063 mm[Hg] Demetria Ginty Other [employer] Other Encounters Encounter DateEncounter TypeCare ProviderFacilityStart: 52-12-5976aqjgujbzbi Eren SHOOKFacility:EU BellevueStart: 04-01-2025 End: 54-47-0616qbenhytihnHJPJTGJJ E [facility]tart: 02-28-2025 End: 90-18-4060dlfrahitfaQnynafe R WATERSFacility:EU BellevueStart: 02-28-2025 End: 91-69-0258Vswevwr encounter procedureEren SHOOK [facility] start: 01-26-2025 End: 06-46-4766lmuwznebabMorzdyll Ball DO Work Phone: [facility] Work Phone: Start: 01-26-2025 End: 20-47-1353Vwbkcpa encounter procedureBekayla [facility] Work Phone: Start: 01-26-2025 End: 22-79-8569Flavbwu encounter statusBekayla Staley [facility] Hospitaltart: 11-05-2024 End: 15-97-2258qaburojbicKvynsax R WATERSFacility:EU BellevueStart: 11-05-2024 End: 45-20-9794Lumvwmj encounter procedureEren SHOOK [facility] start: 10-14-2024 End: 03-00-9024eipbupsgamCvzkahf R WATERSFacility:FTMCStart: 10-14-2024 End: 51-48-8304Wcbtqac encounter procedureEren SHOOK [facility] Start: 09-07-2024 End: 22-51-1632Xuscpd outpatient new 30 minutesEmscott Parker MD Work Phone: [facility] SWS DERMComment on above:Other seborrheic dermatitis (Primary Dx); Lentigines; Seborrheic keratosisStart: 09-07-2024 End: 57-43-7593zqitvluvooWGPGA Gorge MACEDOINot AvailableStart: 09-07-2024 End: 47-62-1237Onphch flowsheetEmscott Parker MD Work Phone: [facility] DERMStart: 09-07-2024 End: 05-65-7545Nwkoaf flowsheetEmscott Parker MD Work Phone: [facility]WS DERMStart: 08-02-2024 End: 11-95-7847xjkzczjcghLaemexc R WATERSFacility:EU BellevueStart: 08-02-2024 End: 52-52-2824Mmilies encounter procedureEren SHOOK [facility] [facility] start: 01-19-2024 End: 15-80-5857semoyxpulpAcrxdkgwnAdams County Hospital Work Phone: Start: 01-19-2024 End: 31-60-5038Nuycidbyd for general adult medical examination without abnormal findingsMansfield Hospitaltart: 01-19-2024 End: 47-48-1303Voqnesg encounter procedureNovant Health / [facility] Physician GroupP[facility] Work Phone: Start: 06-25-2023 End: 50-67-7965rkojwoatzpNwpqqgfg Ball Other noToobla Other Start: 99-85-3208Nyywnhvmh encounterBenjamin Maricruz [facility] ClinicStart: 12-16-2022 End: 87-89-3042tonvqcyvykBzxelygs Ball Other noToobla Other Start: 89-76-3936Vpzvpddcl for general adult medical examination without abnormal findingsBenjamin BallGEORGETTEG Ball Medical ClinicStart: 93-36-5673Jtlrrueh preventive med est patient 40-64yrsBenjamin BallGEORGETTEG [facility] Medical ClinicStart: 12-01-2022 End: 58-90-7947yqyoysaavfFtbpdfyz Ball Other noToobla Other Start: 26-86-2984Zmolhfzrp encounterBenjamin SergioG Luís Medical ClinicStart: 02-02-2022 End: 51-55-7330jhyqbfjqouVG YAYA STALEYFacility:E9Wklwx: 01-10-2022 End: 34-66-6693euhtbrxrxpJC YAYA LUÍSFacility:G7Vrlhq: 67-61-4548Qcqwuimbc for general adult medical examination without abnormal findingsDR YAYA STALEY [facility] HospitalStart: 08-07-2021 End: 12-40-0188tferbawvcdTJ YAYA LUÍSFacility:Y2Pnikn: 08-07-2021 End: 23-05-8287Xpawlqafb for general adult medical examination without abnormal findingsDR YAYA STALEYFacility:I1Howhb: 97-59-0896Kguptazqx for general adult medical examination without abnormal findingsBenclementechuck Luís Other [employer] ORDISSIMO Other Start: 06-25-2021 End: 66-43-6033rjdpjemmuzSxzbr Liudmila Other [employer] ORDISSIMO Other Start: 41-52-6778Uqjdih outpatient visit 15 minutes Demetria GilmaryFPG [facility] Procedures DateProcedureProcedure DetailPerforming ClinicianStart: 42-88-5496IBO screening DR YAYA STALEYComment on above:Performed By: #### [facility] #### [facility] [address] [place] [address] Dr. Maximus FernandezStart: 47-67-6223Etuuhpom of varicocelePatrick TakeCharge Start: 49-21-3579mpwlb knee arthroscopy with chondroplasty, medial and lateral femoral condyle, anterior horn partial lateral meniscectomy, allograft anterior cruciate ligament reconstructionPatrick SHOOK Start: 33-62-3603TtbeuiwuzmsvokqfornyxuvznwNnfrjdn SHOOK arthroscopy of kneePatrick SHOOK Elbow fracture - closed (disorder)Erenrl SHOOK Comment on above:PINNINGHistory of operative procedure on kneePatrick SHOOK TonsillectomyPatrick GEN WRIST EXPLORATION 2Patrick GEN Comment on above:CARTILAGE TRIMMING LEFT Plan of Treatment DateCare ActivityDetailAuthorStart: 09-08-2025 End: 15-72-6171Wgujmks encounter vvagaeitx48/09/2026 3:35 PM EDT Office Visit [facility] [address] [place] [address] Isabel Parker MD [address] [place] [address] [facility]MStart: 09-07-2024 End: 84-51-9806Gqafbzs encounter erqeiuieg85/08/2025 4:05 PM EDT Office Visit [facility] [address] [place] [address] Isabel Parker MD [address] [place] [address] ArrivedNOMS SWS DERMComment on above:Arrived Comprehensive metabolic 1999 [facility] or [facility] Immunizations Immunization DateImmunizationNotesCare DutzqiggMevwmgio37-59-7824EEGIH-61 Vaccine Pfizer - Documentation Purposes OnlyBenyun Staley Other [facility] HospitalNEGATED: Highlighted row has not occurred!26-27-4360dskjyeoec virus vaccine, live, attenuated, for intranasal usePatrick SHOOK [phone]-BrlocMer[facility] [place] Payers DatePayer CategoryPayerPolicy [id number] Health Insurance [id number] [id number] Cross Blue ShieldBCBS [id number] [id number] [id number] 2..1.536711.3.57[id number] 2..1.987088.3.57[id number] 2..1.605204.3.57[id number] 2..1.014294.3.57[id number] 2..1.925954.3.57[id number] 2..1.602412.3.57[id number] 2..1.687485.3.57[id number] 2..1.696221.3.57[id number] 84.1.862646.3.579.2.83835-04-9311Zoqa Cross Blue [id number] .1.869371.19Private Health [id number] .1.296448.19 Private Health InsuranceAet Insurance [id number] Health InsuranceCigna Health Claims [id number]-vetMmks Pay [id number] Social History DateTypeDetailFacilityUnknown if ever smokedNort ORDISSIMO Other Start: 89-20-9532Qhc Assigned At [facility]tart: 12-16-2022 End: 94-93-3228Gzrvics smoking status NHISNever smoked tobacco (finding) [facility] Hospitaltart: 67-71-4126Otr Assigned At [facility] NorthTobacco smoking statusNeverExecutive [facility] of [facility] ShawTocc smoking status NHISTobacco smoking consumption unknownNOMS HealthcareStart: 75-70-7971Ibt assigned at birthNot on fileNOMS HealthcareStart: 04-77-5297Ahuzqoq use and exposureSmokeless tobacco non-userNOMS HealthcareStart: 61-17-7776Yangcya of Social functionNOMS HealthcareSexual [facility] Start: 74-85-0699EeyNbkl (finding)[facility] Functional Status XhchKvcvqeyavbTvpmkzJefcwead42-29-6822Blgxevzcdf StatusN/AExecutive [facility]rology [facility] Clinical Notes 06-25-2021 to 02-28-2025 Note Date & NqftCozfHgmhebpz71-14-5216 Hospital Discharge instructions Patient Education 02/28/2025 12:17:44 Benign Prostatic Hyperplasia Benign Prostatic Hyperplasia Benign prostatic hyperplasia (BPH) is an enlarged prostate gland that is caused by the normal agingprocess. The prostate may get bigger as a man gets older. The condition is not caused by cancer. The prostate is a walnut-sized gland that is involved in the production of semen. It is located in front of the rectum and below the bladder. The bladder stores urine. The urethra carries stored urine ou t of the body. An enlarged prostate can press on the urethra. This can make it harder to pass urine. The buildup of urine in the bladder can cause infection. Back pressure and infection may progress to bladder damage and kidney (renal) failure. What are the causes? This condition is part of the normal aging process. However, not all men develop problems from thiscondition. If the prostate enlarges away from the [...] urethra. Follow these instructions at home: Take ysso-rpq-duvpsak and prescription medicines only as told by [...] provider. Document Revised: 12/05/2021 Document Reviewed: 12/05/2021 [employer] Patient Education 2023 [employer]. Follow Up Care 11/05/2024 11:08:38 With:GEN ADAM, Eren Chin, URL Address: [facility] [address] , [place] [address]- When: Unknown [facility] 09-29-2025 NotePatient Education Urology Benign Prostatic Hyperplasia Benign prostatic hyperplasia (BPH) is an enlarged prostate gland that is caused by the normal agingprocess. The prostate may get bigger as a man gets older. The condition is not caused by cancer. The prostate is a walnut-sized gland that is involved in the production of semen. It is located in front of the rectum and below the bladder. The bladder stores urine. The urethra carries stored urine ou t of the body. An enlarged prostate can press on the urethra. This can make it harder to pass urine. The buildup of urine in the bladder can cause infection. Back pressure and infection may progress to bladder damage and kidney (renal) failure. What are the causes? This condition is part of the normal aging process. However, not all men develop problems from thiscondition. If the prostate enlarges away from the urethra, urine flow will not be blocked. If it enlarges toward the urethra and compresses it, there will be problems passing urine. What increases the risk? This condition is more likely to develop in men older than 50 years. What are the signs or symptoms? Symptoms of this condition include: ??? Getting up often during the night to urinate. ??? Needing to urinate frequently during the day. ??? Difficulty starting urine flow. ??? Decrease in size and strength of your urine stream. ??? Leaking (dribbling) after urinating. ??? Inability to pass urine. This needs immediate treatment. ??? Inability to completely empty your bladder. ??? Pain when you pass urine. This is more common if there is also an infection. ??? Urinary tract infection (UTI). How is this diagnosed? This condition is diagnosed based on your medical history, a physical exam, and your symptoms. Tests will also be done, such as: ??? A post-void bladder scan. This measures any amount of urine that may remain in your bladder after you finish urinating. ??? A digital rectal exam. In a rectal exam, your health care provider checks your prostate by putting a lubricated, gloved finger into your rectum to feel the back of your prostate gland. This exam detects the size of your gland and any abnormal lumps or growths. ??? An exam of your urine (urinalysis). ??? A prostate specific antigen (PSA) screening. This is a blood test used to screen for prostate cancer. ??? An ultrasound. This test uses sound waves [...] severity of your condition. Treatment may include: ??? Observation and yearly exams. This may be the only treatment needed if your condition and symptoms are mild. ??? Medicines to relieve your symptoms, including: ? Medicines to shrink the prostate. ? Medicines to relax the muscle of the prostate. ??? Surgery in severe cases. Surgery may include: ? Prostatectomy. In this procedure, the prostate tissue is removed completely through an open incision or with a laparoscope or robotics. ? Transurethral resection of the prostate (TURP). In this procedure, a tool is inserted through theopening at the tip of the penis (urethra). It is used to cut away tissue of the inner core of the prostate. The pieces are removed through the same opening of the penis. This removes the blockage. ? Transurethral incision (TUIP). In this procedure, small cuts are made in the prostate. This lessens the prostate's pressure on the urethra. ? Transurethral microwave thermotherapy (TUMT). This procedure uses microwaves to create heat. The heat destroys and removes a small amount of prostate tissue. ? Transurethral needle ablation (TUNA). This procedure uses radio frequencies to destroy and removea small amount of prostate tissue. ? Interstitial laser coagulation (ILC). This procedure uses a laser to destroy and remove a small amount of prostate tissue. ? Transurethral electrovaporization (TUVP). This procedure uses electrodes to destroy and remove a small amount of prostate tissue. ? Prostatic urethral lift. This procedure inserts an implant to push the lobes of the prostate awayfrom the urethra. Follow these instructions at home: ??? Take rmgr-okt-bzoajza and prescription medicines only as told by your health care provider. ??? Monitor your symptoms for any changes. Contact your health care provider with any changes. ??? Avoid drinking large amounts of liquid before going to bed or out in public. ??? Avoid or reduce how much caffeine or alcohol you drink. ??? Give yourself time when you urinate. ??? Keep all follow-up visits. This is important. Contact a health care provider if: ??? You have unexplained back pain. ??? Your symptoms do not get (more content not included)...[facility]06-06-2025 Hospital Discharge instructions Patient Education 11/05/2024 11:00:32 Prostatitis Prostatitis Prostatitis is swelling or inflammation of the prostate gland, also called the prostate. This glandis about 1.5 inches wide and 1 inch [...] quickly and results from an acute bacterial infectionin the prostate gland. It is usually associated [...] when the body's disease-fighting system attacks healthy tissuein the body by mistake. Psychological factors. These [...] Follow these instructions at home: Medicines Take jmzn-hvw-aeytfjj and prescription medicines only as told by your health care provider. If you were prescribed an antibiotic medicine, take it as told by your health care provider. Do notstop using the antibiotic even if you start to feel better. Managing pain and swelling Take sitz baths as directed by your health care provider. For a sitz bath, sit in warm water that is deep enough to cover your hips and buttocks. If directed, apply heat to the affected area as often as told by your health care provider. Use theheat source that your health care provider recommends, [...] important. Where to find more information National [place] of Diabetes and Digestive and Kidney Diseases: [...] depends on the type of prostatitis. Take htre-nxs-icgvqib and prescription medicines only as told by your health care provider. Get help right away of you have chills, feel light-headed, feel like you may faint, cannot urinate,or have blood or blood clots in your urine. This information is not intended to replace advice given to you by your health care provider. Make sure you discuss any questions you have with your health care provider. Document Revised: 04/03/2023 Document Reviewed: 04/03/2023 [employer] Patient Education 2023 [employer]. Follow Up Care 08/02/2024 10:45:04 With:GEN ADAM, Eren Chin, URL Address: [address] [place] [address]- When: Unknown [facility] 06-06-2025 NotePatient Education Infectious Disease Prostatitis Prostatitis is swelling or inflammation of the prostate gland, also called the prostate. This glandis about 1.5 inches wide and 1 inch [...] other disorders of the urinary tract or reproductivetract. ??? Acute bacterial prostatitis. This type starts [...] these instructions at home: Medicines ??? Take fpsm-vsg-pgaclka and prescription medicines only as told by your health care provider. ??? If you were prescribed an antibiotic medicine, take it as told by your health care provider. Donot stop using the antibiotic even if you start to feel better. Managing pain and swelling ??? Take sitz baths as directed by your health care provider. For a sitz bath, sit in warm water that is deep enough to cover your hips and buttocks. ??? If directed, apply heat to the affected area as often as told by your health care provider. Usethe heat source that your health care provider [...] provider. This is important. (more content not included)...[facility]04-08-2025 History of Present illness Narrative* Isabel Parker MD - 09/07/2024 4:05 PM EDT Skin Check Location: Patient requests a skin examination from the waist up Dermatologic history: no history of skin cancer, no history of atypical moles, no family history ofmelanoma New patient All pertinent medical history, medications, [...] benign pigmented lesions that occur on sun-exposed andsun-damaged skin. No treatment is necessary. Recommended regular use of broad spectrum sunscreen SPF 30 or higher 3. Seborrheic keratosis Stuck on verrucous, rodriguez-brown papules and plaques. Patient was counseled regarding these benign growths. Removal is normally not necessary, but they may be removed if they are symptomatic or for cosmetic reasons. Next Visit: 1 year documented in this encounterParkland Health [id number] Hospital Discharge instructions Patient Education 08/02/2024 10:38:24 Prostatitis Prostatitis Prostatitis is swelling or inflammation of the prostate gland, also called the prostate. This glandis about 1.5 inches wide and 1 inch [...] quickly and results from an acute bacterial infectionin the prostate gland. It is usually associated [...] when the body's disease-fighting system attacks healthy tissuein the body by mistake. Psychological factors. These [...] Follow these instructions at home: Medicines Take oymm-dvs-yrfasrh and prescription medicines only as told by your health care provider. If you were prescribed an antibiotic medicine, take it as told by your health care provider. Do notstop using the antibiotic even if you start to feel better. Managing pain and swelling Take sitz baths as directed by your health care provider. For a sitz bath, sit in warm water that is deep enough to cover your hips and buttocks. If directed, apply heat to the affected area as often as told by your health care provider. Use theheat source that your health care provider recommends, [...] important. Where to find more information [place] of Diabetes and Digestive and Kidney Diseases: [...] depends on the type of prostatitis. Take vdvd-wlp-npuzuzv and prescription medicines only as told by your health care provider. Get help right away of you have chills, feel light-headed, feel like you may faint, cannot urinate,or have blood or blood clots in your urine. This information is not intended to replace advice given to you by your health care provider. Make sure you discuss any questions you have with your health care provider. Document Revised: 04/03/2023 Document Reviewed: 04/03/2023 [employer] Patient Education 2023 [employer]. 08/02/2024 10:38:20 Benign Prostatic Hyperplasia Benign Prostatic Hyperplasia Benign prostatic hyperplasia (BPH) is an enlarged prostate gland that is caused by the normal agingprocess. The prostate may get bigger as a man gets older. The condition is not caused by cancer. The prostate is a walnut-sized gland that is involved in the production of semen. It is located in front of the rectum and below the bladder. The bladder stores urine. The urethra carries stored urine ou t of the body. An enlarged prostate can press on the urethra. This can make it harder to pass urine. The buildup of urine in the bladder can cause infection. Back pressure and infection may progress to bladder damage and kidney (renal) failure. What are the causes? This condition is part of the normal aging process. However, not all men develop problems from thiscondition. If the prostate enlarges away from the [...] urethra. Follow these instructions at home: Take rxxp-vpa-wfkakxq and prescription medicines only as told by [...] provider. Document Revised: 12/05/2021 Document Reviewed: 12/05/2021 [employer] Patient Education 2023 [employer]. Follow Up Care 06/24/2024 14:39:24 With:GEN ADAM, Eren Chin, URL Address: [facility] [address] , [place] [phone] When: Unknown Comments:3 mos (new med) [facility] 03-03-2025 NotePatient Education Infectious Disease Prostatitis Prostatitis is swelling or inflammation of the prostate gland, also called the prostate. This glandis about 1.5 inches wide and 1 inch [...] other disorders of the urinary tract or reproductivetract. ??? Acute bacterial prostatitis. This type starts [...] these instructions at home: Medicines ??? Take qdre-ngo-bpcacuw and prescription medicines only as told by your health care provider. ??? If you were prescribed an antibiotic medicine, take it as told by your health care provider. Donot stop using the antibiotic even if you start to feel better. Managing pain and swelling ??? Take sitz baths as directed by your health care provider. For a sitz bath, sit in warm water that is deep enough to cover your hips and buttocks. ??? If directed, apply heat to the affected area as often as told by your health care provider. Usethe heat source that your health care provider [...] provider. This is important. (more content not included)...[facility]01-24-2024 Evaluation note* Encounter Date Diagnosis Assessment Notes Treatment Notes Treatment Clinical Notes Jun, Gastroesophageal ref lux disease with esophagitis without hemorrhage (ICD-10 - K21.00) [employer] Other 07-17-2023 Evaluation note* Encounter Date Diagnosis Assessment Notes Treatment Notes Treatment Clinical Notes Nov, Wellness examination (ICD-10 - Z 00.00) Healthy diet and exercise. Reviewed age-appropriate preventive testing recommended. Nov,rimary hypertension (ICD-10 - I10)This patient is instructed to consume a healthy, low-fat, low-salt diet. They are also encouraged to continue exercise to achieve/maintain a normal BMI. Nov,Elevated cholesterol (ICD-10 - E78.00)Instructed on diet and exercise with continued statin therapy.Discussed the beneficial effects of lo wering cholesterol in reducing the risk for cerebrovascular and cardiovascular disease. Nov,astroesophageal reflux disease with esophagitis without hemorrhage (ICD-10 - K21.00)Diet instructions: Smaller portions, avoid eating and laying flat, avoid eating or drinking prior to bedtime. Weight loss. Nov,Lumbar spondylosis (ICD-10 - M47.816)The patient is instructed to avoid bending, twisting or lifting. They are to use intermittent heat and ice as needed. They may schedule a massage or gentle manipulation. They may safely use Tylenol as needed. Nov,Screening PSA (prostate specific antigen) (ICD-10 - Z12.5) Nov,Erectile dysfunction due to arterial insufficiency (ICD-10 - N52.01) Reassured Discussed etiology Discussed possible side effects w/ medication Instructed to go to ER if develop CP, palpitations or lightheadedness Nov,Tinea versicolor (ICD-10 - B36.0)Reassured Reviewed etiology and treatment. Nov,Other obesity due to excess calories (ICD-10 - E66.09)This patient has been instructed on a low-fat, high-fiber diet. They are instructed to reduce calories, portion sizes and snacks. It is recommended that they exercise for 30 minutes, 3-5 times weekly. Nov,ody mass index [BMI] 34.0-34.9, adult (ICD-10 - Z68.34) [employer] Other 01-24-2022 Evaluation note* Encounter Date Diagnosis [...] understanding and is agreeable to treatment plan [place] [facility] Other Evaluation + Plan note Future Appointments Appointment Date:11/05/2024 09:45:00 AM Scheduled Provider:Eren SHOOK MD Location:[facility] Appointment Type:URO Office Visit [facility] evaluation + Plan note Future Appointments Appointment Date:02/28/2025 11:15:00 AM Scheduled Provider:Eren SHOOK MD Location:[facility] Appointment Type:URO Office Visit [facility] evaluation + Plan note Future Appointments Appointment Date:03/03/2026 10:15:00 AM Scheduled Provider:Eren SHOOK MD Location:[facility] Appointment Type:URO Office Visit [facility] evaluation noteNo InformationNort ORDISSIMO Other Evaluation note* Diagnosis Onset Date Resolution Status GERD (gastroesophageal reflux disease) acuteHypercholesterolemiaacuteHypertensionacuteLumbar spondylosisacuteObesity acuteRight hip painacuteWellness examinationnonChildren[facility] Work Phone: Evaluation note* Diagnosis Other seborrheic dermatitis- Primary Lentigines Seborrheic keratosis documented in this encounter [facility] HealthcareEvaluation note* Diagnosis Onset Date Resolution Status Admit Date BPPV (benign paroxysmal positional verti go) acuteAugust 2024 1:19pmGERD (gastroesophageal reflux disease)acuteAugust 2024 1:19pmHypercholesterolemiaacuteAugust 2024 1:19pmHypertension acuteAugust 2024 1:19pmLumbar spondylosisacuteAugust 2024 1:19pm ObesityacuteAugust 2024 1:19pmRight hip painacuteAugust 2024 1:19pm Screening PSA (prostate specific antigen)acuteAugust 2024 1:19pmWellness examinationnoneactiveAugust 2024 1:19pm [facility] Work Phone: History general Narrative - Reported* Type Description Date Medical History Hypertension Medical HistoryEsophageal refluxMedical HistoryhypercholesterolemiaSurgical Historyleft wrist surgerySurgical Historyright knee surgerySurgical History testicular surgery for ruptured arteryHospitalization Historysee above [place] [facility] Other Hospital course Narrative No data available for this section [facility] Discharge instructions No data available for this section [facility] Progress note No data available for this section [facility] reason for referral (narrative)No reason for referral information availableOhio State [facility] Work Phone: Summary Purpose Family History No Family History Records Found Relationship Condition Age at Onset Recorded Date/T karen mother End-stage renal disease Unknown motherCoronary artery diseaseUnknownbrotherDeceasedUnknownMalignant neoplasm Unknownfamily memberDeceasedUnknownmotherHypertensionUnknownDiabetes mellitus UnknownRenal failureUnknownDeceasedUnknownHeart diseaseUnknownsisterMalignant neoplasmUnknownsisterMalignant neoplasm of boneUnknownHypertensionUnknown Advance Directives No Advanced Directives Records Found Advance Directive Response Recorded Date/ Time Advance [...] FOR VISIT (unrecogniz ed section and content) ReasonCommentsSkin Check (unrecognized sect ion and content) No Status Records FoundNo Status Records FoundNo Status Records FoundNo Status Records Found INFORMATION SOURCE (unrecogn ized section and content) DATE CREATED AUTHOR 02/05/2022 [facility] DATE CREATED AUTHOR AUTHOR'S ORGANIZ ATION 09/09/2024 [facility] DATE CREATED AUTHOR AUTHOR'S ORGANIZ ATION 03/05/2025 [facility] DATE CREATED AUTHOR AUTHOR'S ORGANIZ ATION 04/05/2025 [facility] Care Teams (unrecognized sec tion and content) [...] Active Start: January 26, 2025 End: January 26pollo Staley DOAttending ProviderActiveStart: January 26, 2025 End: January 26, 2025 [...] BE BASED ON THE PRIMARY CLINICAL RECORDS. [facility] [employer] [facility]. provides no warranty or guarantee of the accuracy or completeness of information in this document.
--- OUTSIDE RECORDS SUMMARY | 2025-04-26 10:28 | XMS_ITS | Clinical Summary ---
Author Organization [facility] Address [address] [place] [address] Phone Care Team Providers Care Toll Mechanic Name Role Phone Yaya Osborne DO Primary Care Provider [phone] Encounters DateTypeDepartmentCare KhrrFumaapmunxk33/31/2025 4:15 PM EDTAncillary Procedure [address] [place] [phone] Pure hypercholesterolemia, unspecified; Essential (primary) blrixqbbpdhe77/31/2025Travelfrom Last 3 Months Social History Tobacco UseTypesPacks/DayYears UsedDateSmoking Tobacco: Never AssessedSex and Gender InformationValueDate RecordedSex Assigned at BirthNot on fileLegal Sex Male04/27/2022 7:27 PM ESTGender IdentityNot on fileSexual OrientationNot on file Plan of Treatment Health MaintenanceDue DateLast DoneCommentsCT Inlgutvedibl50/18/1971Colonoscopy 1970Colorectal Cancer Uatvkvtlj74/18/1971FIT-DNA (Cologuard)1970FIT 1970HIV Vidbuifru10/18/1971Lipid Panel1970 5054Nolytdfwnbxjr59/18/1971MMR Vaccines (1 of 1 - Standard series)1971Diabetes Urifjcpsn17/18/1989 Hepatitis C Itjlgcsjb41/18/1989Hepatitis B Vaccines (1 of 3 - 19+ 3-dose series) 1989DTaP/Tdap/Td Vaccines (1 - Tdap)1992PSA Prostate Cancer Rnodjnfcn24/18/2021Pneumococcal Vaccine (1 of 1 - PCV)2020Zoster Vaccines (1 of 2)2020Yearly Adult Eyjupvtw76/Influenza Vaccine (#1)2024OVID-19 Vaccine (1 - 2024- season)2025HIB VaccinesAged OutNo longer eligible based on patient's age to complete this topicHPV Vaccines Aged OutNo longer eligible based on patient's age to complete this topic Hepatitis A VaccinesAged OutNo longer eligible based on patient's age to complete this topicIPV VaccinesAged OutNo longer eligible based on patient's age to complete this topicMeningococcal VaccineAged OutNo longer eligible based on patient's age to complete this topicRotavirus VaccinesAged OutNo longer eligible based on patient's age to complete this topic Procedures Procedure NamePriorityDate/TimeAssociated DiagnosisCommentsCT CARDIAC SCORING WO IV SQTLJLWBKrqiqqc06/31/2025 4:09 PM EDT Pure hypercholesterolemia, unspecified Essential (primary) hypertension from Last 3 Months Results * CT cardiac scoring wo IV contrast (04/01/2025 4:09 PM EDT)Anatomical Region LateralityModalityThoracic, ChestComputed TomographySpecimen (Source) Anatomical Location / LateralityCollection Method / VolumeCollection Time Received Time04/04/2025 1:04 PM EST04/04/2025 1:04 PM EST Impressions 04/04/2025 1:03 PM EST 1. Coronary artery calcium score of 1.29 *. ?? *Coronary Artery Calcium Gated and Nongated Agatston score Score ?Risk 0 ? Very low 1-99 ?Mildly increased 100-299 ? Moderately increased >300 Moderate to severely increased ?? Antonio et al. JCCT 2016 (http://dx.doi.org/10.1016/j.jcct.2016.11.003) ?? MAC 10-Year CHD Risk with Coronary Artery Calcification can be calcuate using link below ?? Https://[email or web address]-nhlbi.org/MESACHDRisk/[email or web address]/[email or web address].[email or web address] ?? Chris rooney al. JACC 2015 (http://dx.doi.org/10.1016/j.j acc.2015.08.035) ?? MACRO: None. ?? Signed by: Lexi Mcgarry 04/04/2025 1:03 PM Dictation workstation: ?? [id number] Narrative 04/04/2025 1:03 PM EST Interpreted By: Lexi Mcgarry, STUDY: CT CARDIAC SCORING WO IV CONTRAST; ??04/01/2025 4:09 pm ?? INDICATION: Signs/Symptoms:E78.00 , I10. ?? COMPARISON: None. ?? ACCESSION NUMBER(S): [id number] ?? ORDERING CLINICIAN: YAYA OSBORNE ?? TECHNIQUE: Using prospective ECG gating, CT scan of the coronary arteries was performed without intravenous contrast. Coronary calcium scoring ??was performed according to the method of Agatston. ?? FINDINGS: The score and distribution of calcium in the coronary arteries is as follows: ?? LM 0 LAD 1.29 LCx 0 RCA 0 ?? Total ?? 1.29 ? The visualized mid/lower ascending thoracic aorta measures 3.1 cm in diameter. The heart is normal in size. No pericardial effusion is present. ?? No gross evidence of mediastinal or hilar lymphadenopathy or masses is identified. The visualized segments of the lungs are normally expanded. ? The visualized subdiaphragmatic structures appear intact. ?? Procedure Note Lexi Mcgarry MD - 04/04/2025 Interpreted By: Lxei Mcgarry, STUDY: CT CARDIAC SCORING WO IV CONTRAST; 04/01/2025 4:09 pm INDICATION: Signs/Symptoms:E78.00 , I10. COMPARISON: None. ACCESSION NUMBER(S): [id number] ORDERING CLINICIAN: YAYA OSBORNE TECHNIQUE: Using prospective ECG gating, CT scan [...] increased >300 Moderate to severely increased Antonio et al. JCCT 2016 (http://dx.doi.org/10.1016/j.jcct.2016.11.003) MAC 10-Year CHD Risk with Coronary Artery Calcification can be calcuate using link below Https://[email or web address]-[email or web address]/[email or web address]/[email or web address].aspx Chris et al. JACC 2015 (http://dx.doi.org/10.1016/j.j acc.2015.08.035) MACRO: None. Signed by: Lexi Mcgarry 04/04/2025 1:03 PM Dictation workstation: [id number] Authorizing ProviderResult TypeResult StatusBekayla Osboren DOIMG CT PROCEDURES Final Result from Last [address] [place] [address] MemberSubscriberPlan / Payer (Effective 2024-Present)Name:Coleman Steele Relation to Subscriber:SpouseName:Melissa Steele Date of :1972 (Home) Address: [address] [place] [address] Payer ID:[id number] (NAIC) Type:Not on file Address: [address] [place] [phone] [place] [address] MemberSubscriberPlan / Payer (Effective 2024-Present)Name:Coleman Steele Relation to Subscriber:SpouseName:Melissa Steele Date of :1972 (Home) Address: [address] [place] [address] Payer ID:[id number] (NAIC) Type:Not on file Address: [address] [place] [phone] Care Teams Team MemberRelationshipSpecialtyStart DateEnd Date Yaya Osborne DO [address] [place] [address] PCP - GeneralInternal Medicine02/28/25
[2025-04-26 11:14] LABS: Alanine Aminotransferase 77 U/L (16-63); Albumin Globulin Ratio 1.3; Albumin Level 4.1 g/dL (3.4-5.0); Alkaline Phosphatase 101 U/L (46-116); Aspartate Amino Transferase 35 U/L (15-37); Globulin 3.2 g/dL; Total Protein 7.3 g/dL (6.4-8.2)
[2025-04-26 11:36] LABS: Iron 165.0 ug/dL (65.0-175.0); Percent Iron Saturation 55.9 %; Total Iron Binding Capacity 295.0 ug/dL (250.0-450.0)
[2025-04-26 11:50] LABS: Ferritin 713.0 ng/mL (26.0-388.0)
== END 2025-04-26 10:25 | disposition home or self-care (01) ==
LOC: LAB 10:25
PROVIDERS: PCP Internal Medicine; Visit Provider Internal Medicine
DX: R74.01 Elevation of levels of liver transaminase levels (principal); Z83.49 Family history of other endocrine, nutritional and metabolic diseases
CPT/HCPCS: 36415; 80076; 82728; 83540; 83550